=== PATIENT | male | born 1950 | race Asian ===

== ENCOUNTER 2017-01-21 15:37 | Inpatient (IN) | payer MEDICARE, MEDICAID ==
[~2017-01-21] VITALS: Ht 157.5 cm; Wt 62.1 kg
--- NOTE | 2017-01-21 15:38 | Emergency Room Report ---
History of Present Illness General Chief Complaint: General Complaint Source: EMS Present Illness HPI Patient is a 66-year-old male brought in by ambulance after increased that he had swelling. Patient had the been having several weeks of a rash to his extremities. The nursing staff noticed some increased left knee redness. He had not been recently on antibiotics. Patient is not currently febrile. He presented for evaluation of possible knee cellulitis. Allergies: Coded Allergies: No Known Allergies (Unverified , 01/21/17) Patient History Past Medical History: see triage record Reviewed Nursing Documentation: PMH: Agreed, PSxH: Agreed Review of Systems All Other Systems: negative except mentioned in HPI Physical Exam Sp02 EP Interpretation: reviewed, normal General Appearance: normal inspection, well appearing, no apparent distress, alert, Chronically Ill Head: atraumatic ENT: normal ENT inspection, hearing grossly normal, normal voice Neck: normal inspection, full range of motion, supple, no bony tend Respiratory: normal inspection, lungs clear, normal breath sounds, no respiratory distress, no retraction, no wheezing Cardiovascular #1: regular rate, rhythm Gastrointestinal: normal inspection, normal bowel sounds, non tender, soft, no guarding, no hernia Genitourinary: no CVA tenderness Musculoskeletal: normal inspection, back normal, normal range of motion, swelling - left knee erythema warmth, bilateral lower extremity lesions about 1cm in diameter Neurologic: normal inspection, alert, responsive, speech normal Psychiatric: normal inspection, judgement/insight normal, mood/affect normal Skin: normal inspection, normal color, no rash Medical Decision Making Diagnostic Impression: Primary Impression: Cellulitis Additional Impressions: Skin ulcer Severe sepsis ER Course Patient presented for skin rash. Differential diagnosis included wasn't limited to cellulitis, septic joint, arthritis, vascular insufficiency, vasculitis among others.Because of complexity of patient's case laboratory testing and imaging studies were ordered.The patient started on IV antibiotics. Blood cultures were obtained. Patient was noted to have elevated WBC and elevated lactic acid level consistent with severe sepsis. Dr. Tom Nolan was contacted for inpatient management. Labs Test 01/21/17 16:26 01/21/17 16:33 White Blood Count 16.8 K/UL (4.8-10.8) Red Blood Count 3.19 M/UL (4.70-6.10) Hemoglobin 11.1 G/DL (14.2-18.0) Hematocrit 31.8 % (42.0-52.0) Mean Corpuscular Volume 100 FL (80-99) Mean Corpuscular Hemoglobin 34.8 PG (27.0-31.0) Mean Corpuscular Hemoglobin Concent 35.0 G/DL (32.0-36.0) Red Cell Distribution Width 13.1 % (11.6-14.8) Platelet Count 281 K/UL (150-450) Mean Platelet Volume 5.6 FL (6.5-10.1) Neutrophils (%) (Auto) % (45.0-75.0) Lymphocytes (%) (Auto) % (20.0-45.0) Monocytes (%) (Auto) % (1.0-10.0) Eosinophils (%) (Auto) % (0.0-3.0) Basophils (%) (Auto) % (0.0-2.0) Prothrombin Time 10.7 SEC (9.30-11.50) Prothromb Time International Ratio 1.1 (0.9-1.1) Activated Partial Thromboplast Time 30 SEC (23-33) Sodium Level 131 mEQ/L (135-145) Potassium Level 3.4 mEQ/L (3.4-4.9) Chloride Level 91 mEQ/L (98-107) Carbon Dioxide Level 21 mEQ/L (20-30) Anion Gap 19 (5-15) Blood Urea Nitrogen 35 mg/dL (7-23) Creatinine 0.8 mg/dL (0.7-1.2) Estimat Glomerular Filtration Rate > 60 mL/min (>60) Glucose Level 278 mg/dL (74-106) Lactic Acid Level 2.30 mmol/L (0.66-2.22) Calcium Level 8.6 mg/dL (8.6-10.2) Total Bilirubin < 0.2 mg/dL (0.0-1.2) Aspartate Amino Transf (AST/SGOT) 49 U/L (5-40) Alanine Aminotransferase (ALT/SGPT) 39 U/L (3-41) Alkaline Phosphatase 79 U/L (40-129) Total Creatine Kinase 790 U/L (38-174) Creatine Kinase MB 12.9 ng/mL (< 6.7) Creatine Kinase MB Relative Index 1.6 Troponin I < 0.30 ng/mL (<=0.30) Total Protein 6.1 g/dL (6.6-8.7) Albumin 2.5 g/dL (3.5-5.2) Globulin 3.6 g/dL Albumin/Globulin Ratio 0.6 (1.0-2.7) Urine Color Yellow Urine Appearance Clear Urine pH 5 (4.5-8.0) Urine Specific [place] 1.010 (1.005-1.035) Urine Protein 2+ (NEGATIVE) Urine Glucose (UA) 3+ (NEGATIVE) Urine Ketones Negative (NEGATIVE) Urine Occult Blood 5+ (NEGATIVE) Urine Nitrite Negative (NEGATIVE) Urine Bilirubin Negative (NEGATIVE) Urine Urobilinogen 1 MG/DL (0.0-1.0) Urine Leukocyte Esterase 1+ (NEGATIVE) Urine RBC 10-15 /HPF (0 - 0) Urine WBC 5-10 /HPF (0 - 0) Urine Squamous Epithelial Cells None /LPF (NONE/OCC) Urine Amorphous Sediment Few /LPF (NONE) Urine Bacteria Moderate /HPF (NONE) EKG Diagnostic Results Rate: tachycardiac Rhythm: NSR ST Segments: no acute changes ASA given to the pt in ED: No Rhythm Strip Diag. Results EP Interpretation: yes Rhythm: no PVC's, no ectopy, other - sinus tachycardia rate 133 Chest X-Ray Diagnostic Results EP Interpretation: Yes Findings: no consolidation, no effusion, no pneumothorax, no acute cardiopulmonary disease Number of Views: 1 Status: unchanged Disposition: ADMITTED INPATIENT Condition: Serious Kush Hammonds Jan 21, 2017 15:38
[2017-01-21 15:41] VITALS: BP 130/80
[2017-01-21] MEDS ORDERED: metroNIDAZOLE 500mg 100 ML IV SCH (15:45)
[2017-01-21] MEDS ORDERED: Cefepime HCl 1 GM in NS 55 ML IV SCH (15:45)
[2017-01-21] MEDS ORDERED: Cefepime 1gm vial ONE (16:17)
[2017-01-21] MEDS ORDERED: ASPIR 8181 MG ORAL (16:47)
[2017-01-21] MEDS ORDERED: ACTOS30 MG ORAL (16:47)
[2017-01-21] MEDS ORDERED: AMBIEN5 MG ORAL (16:47)
[2017-01-21] MEDS ORDERED: FENTANYL1 EAC1 TOPIC (16:49)
[2017-01-21] MEDS ORDERED: CRANBERRY450 M3 PO (16:49)
[2017-01-21] MEDS ORDERED: BENADRYL25 MG ORAL (16:49)
[2017-01-21] MEDS ORDERED: CALCIUM 250+D1 EACH PO (16:49)
[2017-01-21] MEDS ORDERED: FOSAMAX70 MG ORAL (16:49)
[2017-01-21] MEDS ORDERED: COLACE100 MG ORAL (16:49)
[2017-01-21 16:51] LABS: APPEARANCE,URINE CLEAR; KETONES,URINE NEGATIVE (NEGATIVE); LEUKOCYTE ESTERASE ,URINE 1+ (NEGATIVE); NITRITE,URINE NEGATIVE (NEGATIVE); PH,URINE 5 (4.5-8.0); PROTEIN,URINE 2+ (NEGATIVE); UROBILINOGEN,URINE 1 MG/DL (0.0-1.0)
[2017-01-21] MEDS ORDERED: GLUCOPHAGE850 MG ORAL (16:51)
[2017-01-21] MEDS ORDERED: GLUCOTROL10 MG ORAL (16:51)
[2017-01-21] MEDS ORDERED: IBUPROFEN600 MG ORAL (16:53)
[2017-01-21] MEDS ORDERED: NEURONTIN100 MG ORAL (16:53)
[2017-01-21] MEDS ORDERED: LOPID600 MG ORAL (16:53)
[2017-01-21] MEDS ORDERED: NORCO 5-325 TA1 EAC1 ORAL (16:53)
[2017-01-21] MEDS ORDERED: LOTENSIN20 MG ORAL (16:53)
[2017-01-21] MEDS ORDERED: ATENOLOL50 MG ORAL (16:54)
[2017-01-21] MEDS ORDERED: NORVASC10 MG ORAL (16:54)
[2017-01-21] MEDS ORDERED: VITAMIN C250 MG ORAL (16:54)
[2017-01-21 17:00] LABS: MEAN CORPUSCULAR HEMOGLOBIN 34.8 PG (27.0-31.0); MEAN CORPUSCULAR VOLUME 100 FL (80-99); MEAN PLATELET VOLUME 5.6 FL (6.5-10.1); PLATELET COUNT 281 K/UL (150-450); RED BLOOD COUNT 3.19 M/UL (4.70-6.10); RED CELL DISTRIBUTION WIDTH 13.1 % (11.6-14.8); WHITE BLOOD COUNT 16.8 K/UL (4.8-10.8)
[2017-01-21 17:09] LABS: TROPONIN I < 0.30 ng/mL (<=0.30)
[2017-01-21 17:11] LABS: ALANINE AMINOTRANSFERASE 39 U/L (3-41); ALBUMIN/GLOBULIN RATIO 0.6 (1.0-2.7); ANION GAP 19 (5-15); ASPARTATE AMINO TRANSFERASE 49 U/L (5-40); CALCIUM 8.6 mg/dL (8.6-10.2); CARBON DIOXIDE 21 mEQ/L (20-30); CHLORIDE 91 mEQ/L (98-107); CREATININE 0.8 mg/dL (0.7-1.2); GLOMERULAR FILTRATION RATE > 60 mL/min (>60); HEMOLYSIS 3; POTASSIUM 3.4 mEQ/L (3.4-4.9); SODIUM 131 mEQ/L (135-145); TOTAL PROTEIN 6.1 g/dL (6.6-8.7)
[2017-01-21 17:12] VITALS: BP 114/82
[2017-01-21 17:19] LABS: REFLEX LACTIC ACID YES OR NO YES
[2017-01-21 17:20] LABS: AMORPHOUS SEDIMENT,UR FEW /LPF; BACTERIA,URINE MODERATE /HPF
[2017-01-21 17:21] LABS: INR 1.1 (0.9-1.1); PROTHROMBIN TIME 10.7 SEC (9.30-11.50)
[2017-01-21 17:22] LABS: CKMB 12.9 ng/mL (< 6.7)
[2017-01-21] MEDS ORDERED: Mylanta II UD 30ml ORAL PRN (18:45)
[2017-01-21] MEDS ORDERED: Miralax 17gm pkt ORAL PRN (18:45)
[2017-01-21] MEDS ORDERED: Zolpidem 5mg tab ORAL PRN (18:45)
[2017-01-21] MEDS ORDERED: LORazepam Inj 2mg/ml 1ml IV PRN (18:45)
[2017-01-21 19:03] VITALS: BP 136/44
[2017-01-21 19:11] LABS: BAND NEUTROPHILS % (MANUAL) 28 % (0-8); BASOPHILS % (MANUAL) 1 % (0-2); LYMPHOCYTES % (MANUAL) 5 % (20-45); NEUTROPHILS % (MANUAL) 53 % (45-75); TOTAL CELLS COUNTED 100
[2017-01-21 19:13] LABS: ANISOCYTOSIS 1+
[2017-01-21 19:14] LABS: EOSINOPHILS % (MANUAL) 0 % (0-3); HYPOCHROMASIA 1+; MACROCYTES 1+; PLATELET ESTIMATE ADEQUATE; PLATELET MORPHOLOGY NORMAL
[2017-01-21 21:01] VITALS: BP 119/60
[2017-01-21 21:30] VITALS: BP 143/73
[2017-01-21] MEDS: Vancomycin 1gm in D5W 275ml IVPB SCH (22:43)
[2017-01-21] MEDS: Heparin 5000 units/ml inj SUBQ SCH (22:50)
[2017-01-21] MEDS: Morphine Sulfate 2mg/ml Inj IVP PRN (22:53)
[2017-01-21] MEDS: NovoLOG Insulin Flexpen SUBQ SCH (23:43)
[2017-01-22] VITALS (7 sets, daily range): BP systolic 63–147; BP diastolic 40–73
[2017-01-22] MEDS: Cefepime HCl 1 GM in D5W 55 ML IV SCH ×3 (00:50→17:29)
[2017-01-22] MEDS: Morphine Sulfate 2mg/ml Inj IVP PRN ×3 (06:00→17:29)
[2017-01-22] MEDS ORDERED: Glipizide PO (06:01)
[2017-01-22] MEDS ORDERED: DIPHENHYDRAMINE25 M1 ORAL (06:01)
[2017-01-22] MEDS: NovoLOG Insulin Flexpen SUBQ SCH ×4 (06:56→21:10)
[2017-01-22 08:08] LABS: BASOPHILS % (AUTO) 0.6 % (0.0-2.0); LYMPHOCYTES % (AUTO) 7.7 % (20.0-45.0); MEAN CORPUSCULAR HGB CONC 33.1 G/DL (32.0-36.0); MEAN CORPUSCULAR VOLUME 100 FL (80-99); MONOCYTES % (AUTO) 8.4 % (1.0-10.0); NEUTROPHILS % (AUTO) 82.3 % (45.0-75.0); PLATELET COUNT 324 K/UL (150-450); RED BLOOD COUNT 3.34 M/UL (4.70-6.10); RED CELL DISTRIBUTION WIDTH 13.5 % (11.6-14.8); WHITE BLOOD COUNT 14.9 K/UL (4.8-10.8)
[2017-01-22 08:22] LABS: ALANINE AMINOTRANSFERASE 41 U/L (3-41); ALBUMIN/GLOBULIN RATIO 0.6 (1.0-2.7); ANION GAP 20 (5-15); ASPARTATE AMINO TRANSFERASE 38 U/L (5-40); CALCIUM 8.5 mg/dL (8.6-10.2); CARBON DIOXIDE 21 mEQ/L (20-30); CHLORIDE 94 mEQ/L (98-107); CHOLESTEROL 116 mg/dL (< 200); CHOLESTEROL/HDL RATIO 23.2 (3.3-4.4); CREATININE 0.6 mg/dL (0.7-1.2); GLOMERULAR FILTRATION RATE > 60 mL/min (>60); HEMOLYSIS 6; LDL CHOLESTEROL (CALC.) 70 mg/dL (60-99); POTASSIUM 2.8 mEQ/L (3.4-4.9); SODIUM 135 mEQ/L (135-145); TOTAL PROTEIN 6.3 g/dL (6.6-8.7)
[2017-01-22 08:33] LABS: THYROID STIMULATING HORMONE 0.219 uIU/mL (0.300-4.500)
[2017-01-22] MEDS: Heparin 5000 units/ml inj SUBQ SCH ×2 (08:33→21:11)
[2017-01-22] MEDS: Vancomycin 1gm in D5W 275ml IVPB SCH ×2 (08:34→21:08)
[2017-01-22] MEDS ORDERED: Aspirin EC 81mg tab ORAL SCH (09:00)
[2017-01-22 09:16] LABS: HEMOGLOBIN A1C 6.1 % (< 6.0)
[2017-01-22] MEDS ORDERED: NS 275ml ONE (09:46)
[2017-01-22] MEDS ORDERED: Tubing IV Secondary IV ONE (09:46)
--- NOTE | 2017-01-22 12:46 | Consultation ---
History of Present Illness General Date patient seen: Jan 22, 2017 Chief Complaint: General Complaint Referring physician: Dr. Nolan Reason for Consultation: COPD, inpatient management Present Illness HPI 66-year-old male with hx of DM, HTN, COPD, chronic skin disease brought in by ambulance with CC of increased left knee redness. He has generalized rash with some crust and scar formation on some areas. Allergies: Coded Allergies: No Known Allergies (Unverified , 01/21/17) Medication History Scheduled Alendronate Sodium* (Fosamax*), 70 MG ORAL ONCE A WEEK, (Reported) Amlodipine Besylate (Norvasc), 10 MG ORAL DAILY, (Reported) Ascorbic Acid* (Vitamin C*), 250 MG ORAL TWICE A DAY, (Reported) Aspirin* (Aspir 81*), 81 MG ORAL DAILY, (Reported) Atenolol* (Tenormin*), 50 MG ORAL DAILY, (Reported) Benazepril Hcl* (Lotensin*), 20 MG ORAL BID, (Reported) Calcium Carbonate/Vitamin D3 (Calcium 250+D Tablet), 1 EACH PO TID, (Reported) Cranberry Fruit Concentrate (Cranberry), 450 MG PO DAILY, (Reported) Docusate Sodium* (Colace*), 100 MG ORAL TWICE A DAY, (Reported) Fentanyl 50MCG Patch (Fentanyl 50MCG Patch*), 1 PATCH TOPIC EVERY 72 HOURS, ( Reported) Gabapentin* (Neurontin*), 300 MG ORAL BEDTIME, (Reported) Gemfibrozil* (Lopid*), 600 MG ORAL AC, (Reported) Metformin Hcl* (Glucophage*), 850 MG ORAL TID, (Reported) Pioglitazone Hcl* (Actos*), 30 MG ORAL DAILY, (Reported) [Glipizide*], 10 MG PO THREE TIMES A DAY, (Reported) Scheduled PRN Diphenhydramine Hcl* (Diphenhydramine Hcl*), 25 MG ORAL THREE TIMES A DAY PRN for Itching, (Reported) Hydrocodone Bit/Acetaminophen 5-325* ([place] 5-325 Tablet*), 2 TAB ORAL Q6HR PRN for For Pain, (Reported) Ibuprofen* (Motrin*), 400 MG ORAL Q6H PRN for For Pain, (Reported) Zolpidem Tartrate* (Ambien*), 5 MG ORAL BEDTIME PRN for Insomnia, (Reported) Discontinued Medications Glipizide* (Glucotrol*), 10 MG ORAL AC, (Reported) Discontinued Reason: Prescription changed Patient History Healthcare decision maker Resuscitation status Full Code Advanced Directive on File No Past Medical/Surgical History Past Medical/Surgical History: (1) COPD (chronic obstructive pulmonary disease) (2) Diabetes mellitus Review of Systems Skin: Reports: other - itching, rash Physical Exam General Appearance: cachetic Lines, tubes and drains: peripheral HEENT: normocephalic, atraumatic Neck: non-tender, supple Breasts: no masses, no discharge Cardiovascular/Chest: normal peripheral pulses Abdomen: normal bowel sounds, non tender Extremities: other - right knee swelling Skin Exam: rash 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 normal Last 24 Hour Vital Signs Date Time Temp Pulse Resp B/P Pulse Ox O2 Delivery O2 Flow Rate FiO2 01/22/17 11:20 98.1 94 20 113/72 99 Room Air 01/22/17 10:30 97.9 01/22/17 08:34 116 147/73 01/22/17 08:33 116 147/73 01/22/17 08:00 116 01/22/17 07:56 97.9 116 20 147/73 98 Room Air 01/22/17 04:20 98.2 126 20 113/68 96 Room Air 01/22/17 04:00 127 01/22/17 00:00 97.7 64 20 121/65 97 Room Air 01/22/17 00:00 132 01/21/17 21:30 98.2 129 20 143/73 99 Room Air 01/21/17 21:30 130 01/21/17 21:01 98.5 126 19 119/60 100 Room Air 01/21/17 21:01 98.5 126 19 119/60 100 Room Air 01/21/17 19:03 98.1 128 15 136/44 98 Room Air 01/21/17 17:12 98.1 125 15 114/82 98 Room Air 01/21/17 15:41 98.1 138 16 130/80 98 Room Air 01/21/17 15:30 98.1 16 130/80 98 Intake and Output 01/21/17 01/22/17 19:00 07:00 Intake Total 100 ml 330.000 ml Balance 100 ml 330.000 ml Intake IV Total 100 ml 330.000 ml # Voids 1 Laboratory Tests Test 01/21/17 16:26 01/21/17 16:33 01/21/17 17:26 01/22/17 06:55 White Blood Count 16.8 K/UL (4.8-10.8) H 14.9 K/UL (4.8-10.8) H Red Blood Count 3.19 M/UL (4.70-6.10) L 3.34 M/UL (4.70-6.10) L Hemoglobin 11.1 G/DL (14.2-18.0) L 11.0 G/DL (14.2-18.0) L Hematocrit 31.8 % (42.0-52.0) L 33.3 % (42.0-52.0) L Mean Corpuscular Volume 100 FL (80-99) H 100 FL (80-99) H Mean Corpuscular Hemoglobin 34.8 PG (27.0-31.0) H 33.0 PG (27.0-31.0) H Mean Corpuscular Hemoglobin Concent 35.0 G/DL (32.0-36.0) 33.1 G/DL (32.0-36.0) Red Cell Distribution Width 13.1 % (11.6-14.8) 13.5 % (11.6-14.8) Platelet Count 281 K/UL (150-450) 324 K/UL (150-450) Mean Platelet Volume 5.6 FL (6.5-10.1) L 6.0 FL (6.5-10.1) L Neutrophils (%) (Auto) % (45.0-75.0) 82.3 % (45.0-75.0) H Lymphocytes (%) (Auto) % (20.0-45.0) 7.7 % (20.0-45.0) L Monocytes (%) (Auto) % (1.0-10.0) 8.4 % (1.0-10.0) Eosinophils (%) (Auto) % (0.0-3.0) 1.0 % (0.0-3.0) Basophils (%) (Auto) % (0.0-2.0) 0.6 % (0.0-2.0) Differential Total Cells Counted 100 Neutrophils % (Manual) 53 % (45-75) Lymphocytes % (Manual) 5 % (20-45) L Monocytes % (Manual) 13 % (1-10) H Eosinophils % (Manual) 0 % (0-3) Basophils % (Manual) 1 % (0-2) Band Neutrophils 28 % (0-8) H Platelet Estimate Adequate Platelet Morphology Normal Hypochromasia 1+ Anisocytosis 1+ Macrocytosis 1+ Prothrombin Time 10.7 SEC (9.30-11.50) Prothromb Time International Ratio 1.1 (0.9-1.1) Activated Partial Thromboplast Time 30 SEC (23-33) Sodium Level 131 mEQ/L (135-145) L 135 mEQ/L (135-145) Potassium Level 3.4 mEQ/L (3.4-4.9) 2.8 mEQ/L (3.4-4.9) L Chloride Level 91 mEQ/L (98-107) L 94 mEQ/L (98-107) L Carbon Dioxide Level 21 mEQ/L (20-30) 21 mEQ/L (20-30) Anion Gap 19 (5-15) H 20 (5-15) H Blood Urea Nitrogen 35 mg/dL (7-23) H 22 mg/dL (7-23) Creatinine 0.8 mg/dL (0.7-1.2) 0.6 mg/dL (0.7-1.2) L Estimat Glomerular Filtration Rate > 60 mL/min (>60) > 60 mL/min (>60) Glucose Level 278 mg/dL (74-106) H 113 mg/dL (74-106) #H Lactic Acid Level 2.30 mmol/L (0.66-2.22) H 2.40 mmol/L (0.66-2.22) H Calcium Level 8.6 mg/dL (8.6-10.2) 8.5 mg/dL (8.6-10.2) L Total Bilirubin < 0.2 mg/dL (0.0-1.2) 0.3 mg/dL (0.0-1.2) Aspartate Amino Transf (AST/SGOT) 49 U/L (5-40) H 38 U/L (5-40) Alanine Aminotransferase (ALT/SGPT) 39 U/L (3-41) 41 U/L (3-41) Alkaline Phosphatase 79 U/L (40-129) 100 U/L (40-129) Total Creatine Kinase 790 U/L (38-174) H Creatine Kinase MB 12.9 ng/mL (< 6.7) H Creatine Kinase MB Relative Index 1.6 Troponin I < 0.30 ng/mL (<=0.30) Total Protein 6.1 g/dL (6.6-8.7) L 6.3 g/dL (6.6-8.7) L Albumin 2.5 g/dL (3.5-5.2) L 2.4 g/dL (3.5-5.2) L Globulin 3.6 g/dL 3.9 g/dL Albumin/Globulin Ratio 0.6 (1.0-2.7) L 0.6 (1.0-2.7) L Urine Color Yellow Urine Appearance Clear Urine pH 5 (4.5-8.0) Urine Specific [place] 1.010 (1.005-1.035) Urine Protein 2+ (NEGATIVE) H Urine Glucose (UA) 3+ (NEGATIVE) H Urine Ketones Negative (NEGATIVE) Urine Occult Blood 5+ (NEGATIVE) H Urine Nitrite Negative (NEGATIVE) Urine Bilirubin Negative (NEGATIVE) Urine Urobilinogen 1 MG/DL (0.0-1.0) H Urine Leukocyte Esterase 1+ (NEGATIVE) H Urine RBC 10-15 /HPF (0 - 0) H Urine WBC 5-10 /HPF (0 - 0) H Urine Squamous Epithelial Cells None /LPF (NONE/OCC) Urine Amorphous Sediment Few /LPF (NONE) H Urine Bacteria Moderate /HPF (NONE) H Hemoglobin A1c 6.1 % (< 6.0) H Triglycerides Level 207 mg/dL (< 150) H Cholesterol Level 116 mg/dL (< 200) LDL Cholesterol 70 mg/dL (60-99) HDL Cholesterol 5 mg/dL (> 60) Cholesterol/HDL Ratio 23.2 (3.3-4.4) H Thyroid Stimulating Hormone (TSH) 0.219 uIU/mL (0.300-4.500) Microbiology Date/Time Source Procedure Growth Status 01/21/17 16:33 Urine,Clean Catch Urine Culture - Preliminary Resulted Height (Feet): 5 Height (Inches): 2.00 Weight (Pounds): 137 Medications Current Medications Medications (Trade) Dose Ordered Sig/Halina Route PRN Reason Start Time Stop Time Status Last Admin Dose Admin Acetaminophen (Tylenol) 650 mg Q4H PRN ORAL fever 01/21/17 18:45 02/20/17 18:44 Al Hydroxide/Mg Hydroxide (Mylanta II) 30 ml Q6H PRN ORAL dyspepsia 01/21/17 18:45 02/20/17 18:44 Alendronate Sodium (Fosamax) 70 mg ONCE A WEEK ORAL 01/22/17 06:00 02/21/17 05:59 01/22/17 08:32 Amlodipine Besylate (Norvasc) 10 mg DAILY ORAL 01/22/17 09:00 02/21/17 08:59 01/22/17 08:33 Aspirin (Ecotrin) 81 mg DAILY ORAL 01/22/17 09:00 02/21/17 08:59 01/22/17 08:33 Atenolol (Tenormin) 50 mg DAILY ORAL 01/22/17 09:00 02/21/17 08:59 01/22/17 08:34 Cefepime HCl/ Dextrose (Maxipime/D5W) 55 ml @ 110 mls/hr Q8HR@0000,0800,1600 IV 01/22/17 00:00 01/29/17 00:00 01/22/17 08:32 Dextrose (Dextrose 50%) STAT PRN IV Hypoglycemia 01/21/17 18:45 02/20/17 18:44 Fentanyl (Duragesic) 1 patch EVERY 72 HOURS TDERMAL 01/24/17 09:00 01/31/17 08:59 Gabapentin (Neurontin) 300 mg BEDTIME ORAL 01/21/17 21:00 02/20/17 20:59 01/21/17 22:45 Gemfibrozil (Lopid) 600 mg DAILY ORAL 01/22/17 09:00 02/21/17 08:59 01/22/17 08:37 Heparin Sodium (Porcine) (Heparin 5000 units/ml) 5,000 units EVERY 12 HOURS SUBQ 01/21/17 21:00 02/20/17 20:59 01/22/17 08:33 Ibuprofen (Advil) 400 mg Q6H PRN ORAL MILD TO MODERATE PAIN 01/21/17 18:45 02/20/17 18:44 Insulin Aspart BEFORE MEALS AND HS SUBQ 01/21/17 21:00 02/20/17 20:59 01/22/17 11:06 Lorazepam (Ativan 2mg/ml 1ml) 0.5 mg Q4H PRN IV For Anxiety 01/21/17 18:45 01/28/17 18:44 Morphine Sulfate (Morphine Sulfate) 1 mg Q4H PRN IVP SEVERE PAIN 01/21/17 18:45 01/28/17 18:44 01/22/17 09:58 Ondansetron HCl (Zofran) 4 mg Q6H PRN IVP Nausea & Vomiting 01/21/17 18:45 02/20/17 18:44 Polyethylene Glycol (Miralax) 17 gm HSPRN PRN ORAL Constipation 01/21/17 18:45 02/20/17 18:44 Potassium Chloride (K-Dur) 40 meq Q8HR ORAL 01/22/17 11:00 01/23/17 06:01 01/22/17 11:37 Vancomycin HCl 1 ea 1 ea DAILY PRN MISC Per rx protocol 01/21/17 18:45 02/20/17 18:44 Vancomycin HCl/ Dextrose (Vancomycin/D5W) 275 ml @ 183.708 mls/hr Q12HR IVPB 01/21/17 21:00 01/26/17 20:59 01/22/17 08:34 Zolpidem Tartrate (Ambien) 5 mg HSPRN PRN ORAL Insomnia 01/21/17 18:45 02/20/17 18:44 01/22/17 00:06 Assessment/Plan Problem List: (1) Severe sepsis ICD Codes: A41.9 - Sepsis, unspecified organism; R65.20 - Severe sepsis without septic shock SNOMED: 24414103 (2) Cellulitis ICD Codes: L03.90 - Cellulitis, unspecified SNOMED: 549625560 (3) Skin ulcer ICD Codes: L98.499 - Non-pressure chronic ulcer of skin of other sites with unspecified severity SNOMED: 68706291 (4) COPD (chronic obstructive pulmonary disease) ICD Codes: J44.9 - Chronic obstructive pulmonary disease, unspecified SNOMED: 35741420 (5) Diabetes mellitus ICD Codes: E11.9 - Type 2 diabetes mellitus without complications SNOMED: 01094982 Assessment/Plan rheumatology evaluation IV antibiotics check cultures v/u wbc wound care sliding scale insulin coverage DESIRAE MERIDA Jan 22, 2017 12:46
--- NOTE | 2017-01-22 13:34 | Diagnostic Imaging Report ---
Indication: Shortness of breath Technique: Single portable AP view of the chest. Findings: Comparison: 11/03/2005 Chronic deformities of the glenoid processes of both scapulae unchanged. Left humeral head currently subluxed cephalad, apparently obliterating the subacromial space. Right subacromial spur base excluded from image. The extra pulmonary soft tissues, cardiomediastinal silhouette, pulmonary vasculature and parenchyma, and pleural surfaces remain unremarkable. 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
--- NOTE | 2017-01-22 15:10 | Infectious Diseases Prog Note ---
Assessment/Plan Problems: (1) Scabies Assessment & Plan: will give him Elimite course for now and monitor his response , keep in contact isolation (2) Multiple wounds of skin Assessment & Plan: rule out pemphigus , recommend skin biopsy and pathology , and dermatology eval (3) Wound of left leg Assessment & Plan: with infection, rule out underlying osteomyelitis, will continue cefepime and vancomycin , check X ray of the left leg. recommend surgical eval (4) Severe sepsis Assessment & Plan: due to the above, will add metronidazole, and fluconazole empirically until further culture is obtained . (5) Cellulitis Assessment & Plan: continue wide spectrum antibiotics (6) Diabetes mellitus Assessment & Plan: recommend tight glycemic control to keep blood glucose between 80-120. Subjective Allergies: Coded Allergies: No Known Allergies (Unverified , 01/21/17) Objective Vital Signs Last 24 Hour Vital Signs Date Time Temp Pulse Resp B/P Pulse Ox O2 Delivery O2 Flow Rate FiO2 01/22/17 12:00 83 01/22/17 11:20 98.1 94 20 113/72 99 Room Air 01/22/17 10:30 97.9 01/22/17 08:34 116 147/73 01/22/17 08:33 116 147/73 01/22/17 08:00 116 01/22/17 07:56 97.9 116 20 147/73 98 Room Air 01/22/17 04:20 98.2 126 20 113/68 96 Room Air 01/22/17 04:00 127 01/22/17 00:00 97.7 64 20 121/65 97 Room Air 01/22/17 00:00 132 01/21/17 21:30 98.2 129 20 143/73 99 Room Air 01/21/17 21:30 130 01/21/17 21:01 98.5 126 19 119/60 100 Room Air 01/21/17 21:01 98.5 126 19 119/60 100 Room Air 01/21/17 19:03 98.1 128 15 136/44 98 Room Air 01/21/17 17:12 98.1 125 15 114/82 98 Room Air 01/21/17 15:41 98.1 138 16 130/80 98 Room Air 01/21/17 15:30 98.1 16 130/80 98 Height (Feet): 5 Height (Inches): 2.00 Weight (Pounds): 137 Microbiology Date/Time Source Procedure Growth Status 01/21/17 16:33 Urine,Clean Catch Urine Culture - Preliminary Resulted Laboratory Tests Test 01/21/17 16:26 01/21/17 16:33 01/21/17 17:26 01/22/17 06:55 White Blood Count 16.8 K/UL (4.8-10.8) H 14.9 K/UL (4.8-10.8) H Red Blood Count 3.19 M/UL (4.70-6.10) L 3.34 M/UL (4.70-6.10) L Hemoglobin 11.1 G/DL (14.2-18.0) L 11.0 G/DL (14.2-18.0) L Hematocrit 31.8 % (42.0-52.0) L 33.3 % (42.0-52.0) L Mean Corpuscular Volume 100 FL (80-99) H 100 FL (80-99) H Mean Corpuscular Hemoglobin 34.8 PG (27.0-31.0) H 33.0 PG (27.0-31.0) H Mean Corpuscular Hemoglobin Concent 35.0 G/DL (32.0-36.0) 33.1 G/DL (32.0-36.0) Red Cell Distribution Width 13.1 % (11.6-14.8) 13.5 % (11.6-14.8) Platelet Count 281 K/UL (150-450) 324 K/UL (150-450) Mean Platelet Volume 5.6 FL (6.5-10.1) L 6.0 FL (6.5-10.1) L Neutrophils (%) (Auto) % (45.0-75.0) 82.3 % (45.0-75.0) H Lymphocytes (%) (Auto) % (20.0-45.0) 7.7 % (20.0-45.0) L Monocytes (%) (Auto) % (1.0-10.0) 8.4 % (1.0-10.0) Eosinophils (%) (Auto) % (0.0-3.0) 1.0 % (0.0-3.0) Basophils (%) (Auto) % (0.0-2.0) 0.6 % (0.0-2.0) Differential Total Cells Counted 100 Neutrophils % (Manual) 53 % (45-75) Lymphocytes % (Manual) 5 % (20-45) L Monocytes % (Manual) 13 % (1-10) H Eosinophils % (Manual) 0 % (0-3) Basophils % (Manual) 1 % (0-2) Band Neutrophils 28 % (0-8) H Platelet Estimate Adequate Platelet Morphology Normal Hypochromasia 1+ Anisocytosis 1+ Macrocytosis 1+ Prothrombin Time 10.7 SEC (9.30-11.50) Prothromb Time International Ratio 1.1 (0.9-1.1) Activated Partial Thromboplast Time 30 SEC (23-33) Sodium Level 131 mEQ/L (135-145) L 135 mEQ/L (135-145) Potassium Level 3.4 mEQ/L (3.4-4.9) 2.8 mEQ/L (3.4-4.9) L Chloride Level 91 mEQ/L (98-107) L 94 mEQ/L (98-107) L Carbon Dioxide Level 21 mEQ/L (20-30) 21 mEQ/L (20-30) Anion Gap 19 (5-15) H 20 (5-15) H Blood Urea Nitrogen 35 mg/dL (7-23) H 22 mg/dL (7-23) Creatinine 0.8 mg/dL (0.7-1.2) 0.6 mg/dL (0.7-1.2) L Estimat Glomerular Filtration Rate > 60 mL/min (>60) > 60 mL/min (>60) Glucose Level 278 mg/dL (74-106) H 113 mg/dL (74-106) #H Lactic Acid Level 2.30 mmol/L (0.66-2.22) H 2.40 mmol/L (0.66-2.22) H Calcium Level 8.6 mg/dL (8.6-10.2) 8.5 mg/dL (8.6-10.2) L Total Bilirubin < 0.2 mg/dL (0.0-1.2) 0.3 mg/dL (0.0-1.2) Aspartate Amino Transf (AST/SGOT) 49 U/L (5-40) H 38 U/L (5-40) Alanine Aminotransferase (ALT/SGPT) 39 U/L (3-41) 41 U/L (3-41) Alkaline Phosphatase 79 U/L (40-129) 100 U/L (40-129) Total Creatine Kinase 790 U/L (38-174) H Creatine Kinase MB 12.9 ng/mL (< 6.7) H Creatine Kinase MB Relative Index 1.6 Troponin I < 0.30 ng/mL (<=0.30) Total Protein 6.1 g/dL (6.6-8.7) L 6.3 g/dL (6.6-8.7) L Albumin 2.5 g/dL (3.5-5.2) L 2.4 g/dL (3.5-5.2) L Globulin 3.6 g/dL 3.9 g/dL Albumin/Globulin Ratio 0.6 (1.0-2.7) L 0.6 (1.0-2.7) L Urine Color Yellow Urine Appearance Clear Urine pH 5 (4.5-8.0) Urine Specific [place] 1.010 (1.005-1.035) Urine Protein 2+ (NEGATIVE) H Urine Glucose (UA) 3+ (NEGATIVE) H Urine Ketones Negative (NEGATIVE) Urine Occult Blood 5+ (NEGATIVE) H Urine Nitrite Negative (NEGATIVE) Urine Bilirubin Negative (NEGATIVE) Urine Urobilinogen 1 MG/DL (0.0-1.0) H Urine Leukocyte Esterase 1+ (NEGATIVE) H Urine RBC 10-15 /HPF (0 - 0) H Urine WBC 5-10 /HPF (0 - 0) H Urine Squamous Epithelial Cells None /LPF (NONE/OCC) Urine Amorphous Sediment Few /LPF (NONE) H Urine Bacteria Moderate /HPF (NONE) H Hemoglobin A1c 6.1 % (< 6.0) H Triglycerides Level 207 mg/dL (< 150) H Cholesterol Level 116 mg/dL (< 200) LDL Cholesterol 70 mg/dL (60-99) HDL Cholesterol 5 mg/dL (> 60) Cholesterol/HDL Ratio 23.2 (3.3-4.4) H Thyroid Stimulating Hormone (TSH) 0.219 uIU/mL (0.300-4.500) Current Medications Medications (Trade) Dose Ordered Sig/Halina Route PRN Reason Start Time Stop Time Status Last Admin Dose Admin Acetaminophen (Tylenol) 650 mg Q4H PRN ORAL fever 01/21/17 18:45 02/20/17 18:44 Al Hydroxide/Mg Hydroxide (Mylanta II) 30 ml Q6H PRN ORAL dyspepsia 01/21/17 18:45 02/20/17 18:44 Alendronate Sodium (Fosamax) 70 mg ONCE A WEEK ORAL 01/22/17 06:00 02/21/17 05:59 01/22/17 08:32 Amlodipine Besylate (Norvasc) 10 mg DAILY ORAL 01/22/17 09:00 02/21/17 08:59 01/22/17 08:33 Aspirin (Ecotrin) 81 mg DAILY ORAL 01/22/17 09:00 02/21/17 08:59 01/22/17 08:33 Atenolol (Tenormin) 50 mg DAILY ORAL 01/22/17 09:00 02/21/17 08:59 01/22/17 08:34 Cefepime HCl/ Dextrose (Maxipime/D5W) 55 ml @ 110 mls/hr Q8HR@0000,0800,1600 IV 01/22/17 00:00 01/29/17 00:00 01/22/17 08:32 Clotrimazole (Lotrimin) 1 applic EVERY 12 HOURS TOPIC 01/22/17 21:00 02/21/17 20:59 UNV Dextrose (Dextrose 50%) STAT PRN IV Hypoglycemia 01/21/17 18:45 02/20/17 18:44 Fentanyl (Duragesic) 1 patch EVERY 72 HOURS TDERMAL 01/24/17 09:00 01/31/17 08:59 Fluconazole/ Sodium Chloride (Diflucan 200mg/ 100ml Premix) 100 ml @ 100 mls/hr Q24H IVPB 01/22/17 15:00 01/29/17 14:59 UNV Gabapentin (Neurontin) 300 mg BEDTIME ORAL 01/22/17 21:00 02/21/17 20:59 Gemfibrozil (Lopid) 600 mg DAILY ORAL 01/22/17 09:00 02/21/17 08:59 01/22/17 08:37 Heparin Sodium (Porcine) (Heparin 5000 units/ml) 5,000 units EVERY 12 HOURS SUBQ 01/21/17 21:00 02/20/17 20:59 01/22/17 08:33 Ibuprofen (Advil) 400 mg Q6H PRN ORAL MILD TO MODERATE PAIN 01/21/17 18:45 02/20/17 18:44 Insulin Aspart BEFORE MEALS AND HS SUBQ 01/21/17 21:00 02/20/17 20:59 01/22/17 11:06 Lorazepam (Ativan 2mg/ml 1ml) 0.5 mg Q4H PRN IV For Anxiety 01/21/17 18:45 01/28/17 18:44 Metronidazole 500 mg 500 mg Q8HR ORAL 01/22/17 15:00 01/29/17 14:59 UNV Morphine Sulfate (Morphine Sulfate) 1 mg Q4H PRN IVP SEVERE PAIN 01/21/17 18:45 01/28/17 18:44 01/22/17 09:58 Mupirocin (Bactroban Oint) 1 applic THREE TIMES A DAY TOPIC 01/23/17 09:00 01/28/17 08:59 UNV Ondansetron HCl (Zofran) 4 mg Q6H PRN IVP Nausea & Vomiting 01/21/17 18:45 02/20/17 18:44 Permethrin (Elimite) 1 applic ONCE ONCE TOPIC 01/22/17 15:00 01/22/17 15:01 UNV Polyethylene Glycol (Miralax) 17 gm HSPRN PRN ORAL Constipation 01/21/17 18:45 02/20/17 18:44 Potassium Chloride (K-Dur) 40 meq Q8HR ORAL 01/22/17 11:00 01/23/17 06:01 01/22/17 11:37 Vancomycin HCl 1 ea 1 ea DAILY PRN MISC Per rx protocol 01/21/17 18:45 02/20/17 18:44 Vancomycin HCl/ Dextrose (Vancomycin/D5W) 275 ml @ 183.708 mls/hr Q12HR IVPB 01/21/17 21:00 01/26/17 20:59 01/22/17 08:34 Zolpidem Tartrate (Ambien) 5 mg HSPRN PRN ORAL Insomnia 01/21/17 18:45 02/20/17 18:44 01/22/17 00:06 Vin Acevedo M.D. Jan 22, 2017 15:10
--- NOTE | 2017-01-22 16:11 | Wound Care Consultation ---
Wound Assessment Wound Assessment #1: Wound Present on Admission: Yes New Wound: No Status Change of Wound: No Wound Location Body Site Modif: left Wound Location Body Site: malleolus/ankle Wound Type: pressure ulcer Zoe Test: Does not Zoe Pressure Ulcer Stage: IV/unstageable Wound Thickness: Full Thickness Wound Length: 4.0 Wound Width: 3.0 Wound Depth: utd Percent of Wound Bed Yellow/Wh: 20 Percent of Wound Purple/Maroon: 80 Wound Drainage Description: Serosanguineous Wound Drainage Amount: Scant Wound Drainage Odor: None/Absent Tissue Surrounding Wound: Erythemic Wound General Appearance: Reddened Wound Assessment #2: Wound Number: #2 Wound Present on Admission: Yes New Wound: No Status Change of Wound: No Wound Location Body Site Modif: left, lower, lateral Wound Location Body Site: leg Wound Type: lesion-etiology unknown Zoe Test: Does not Zoe Wound Thickness: Full Thickness Wound Length: 5.0 Wound Width: 5.5 Wound Depth: utd Percent of Wound [place]/Red: 60 Percent of Wound Bed Yellow/Wh: 40 Wound Drainage Description: Serosanguineous Wound Drainage Amount: Scant Wound Drainage Odor: None/Absent Tissue Surrounding Wound: Erythemic Wound General Appearance: Reddened Wound Assessment #3: Wound Number: #3 Wound Present on Admission: Yes New Wound: No Status Change of Wound: No Wound Location Body Site Modif: left, other - inferior Wound Location Body Site: knee Wound Type: lesion-etiology unknown Zoe Test: Does not Zoe Wound Thickness: Full Thickness Wound Length: 3.0 Wound Width: 3.5 Wound Depth: utd Percent of Wound [place]/Red: 60 Percent of Wound Bed Yellow/Wh: 40 Wound Drainage Description: Serosanguineous Wound Drainage Amount: Scant Wound Drainage Odor: None/Absent Tissue Surrounding Wound: Erythemic Wound General Appearance: Reddened Wound Assessment #4: Wound Number: #4 Wound Present on Admission: Yes New Wound: No Status Change of Wound: No Wound Location Body Site Modif: left, right Wound Location Body Site: hand Wound Type: lesion-etiology unknown Zoe Test: Does not Zoe Wound Thickness: Full Thickness Wound Length: 2.0 Wound Width: 2.5 Wound Depth: utd Percent of Wound [place]/Red: 60 Percent of Wound Bed Yellow/Wh: 40 Wound Drainage Description: Serosanguineous Wound Drainage Amount: Scant Wound Drainage Odor: None/Absent Tissue Surrounding Wound: Erythemic Wound General Appearance: Reddened Wound Assessment #5: Wound Number: #5 Wound Present on Admission: Yes New Wound: No Status Change of Wound: No Wound Location Body Site Modif: mid Wound Location Body Site: sacral Wound Type: pressure ulcer Zoe Test: Does not Zoe Pressure Ulcer Stage: deep tissue injury Wound Thickness: Full Thickness Wound Length: 4.5 Wound Width: 3.5 Wound Depth: utd Percent of Wound Purple/Maroon: 100 Wound Drainage Amount: None Wound Drainage Odor: None/Absent Tissue Surrounding Wound: Erythemic Wound General Appearance: Reddened Wound Assessment #6: Wound Number: #6 Wound Present on Admission: Yes New Wound: No Status Change of Wound: No Wound Location Body Site: perineal area Wound Type: chemical burn Zoe Test: Does not Zoe Percent of Wound [place]/Red: 100 Wound Drainage Amount: None Wound Drainage Odor: None/Absent Tissue Surrounding Wound: Erythemic Wound General Appearance: Reddened Wound Assessment #7: Wound Number: #7 Wound Present on Admission: Yes New Wound: No Status Change of Wound: No Wound Location Body Site Modif: other - generalized Wound Location Body Site: other - generalized Wound Type: rash - with open and dry lesion Zoe Test: Does not Zoe Wound Drainage Description: Serosanguineous Wound Drainage Amount: Scant Wound Drainage Odor: None/Absent Wound General Appearance: Open to air Wound Comment #1 Left malleolus stage IV/unstageable pressure ulcer #2 Left lateral lower leg open wound #3 Left inferior to left knee open wound #4 Left and right hand with multiple open wounds #5 Generalized rash with open and dry wounds #6 Chemical burn on perineal area #7 Sacral DTI pressure ulcer Recommendation -Left malleolus pressure ulcer Cleanse with saline, pat dry, apply Triad cream, cover with bordered gauze daily and PRN soiled/dislodged -Left lateral leg, left inferior of left knee, left and right hands open wound Cleanse with saline, pat dry, apply Adaptic cover with bordered gauze daily and PRN soiled/dislodged -Apply Bactroban oint to generalized Dermitis -Local wound care for DTI per protocol -Keep clean and dry -Low air loss overlay mattress -Turn and reposition -Optimize nutrition -Offload both heels -Heel protector -Assess and f/u accordingly for any changes ROMMEL MATTHEWS RN Jan 22, 2017 16:11
[2017-01-22] MEDS: metroNIDAZOLE 500mg tab ORAL SCH ×2 (16:37→23:00)
--- NOTE | 2017-01-22 19:08 | Consultation ---
DATE OF CONSULTATION: INFECTIOUS DISEASE CONSULTATION CONSULTING PHYSICIAN: Vin Acevedo M.D. REQUESTING PHYSICIAN: Tom Nolan D.O. REASON FOR CONSULTATION: Skin wounds with infection, possible scabies, and cellulitis. Recommendation for antibiotics therapy. HISTORY OF PRESENT ILLNESS: The patient is a 66-year-old male with past medical history of skin wound and ulcers, who was brought in by paramedics for increased swelling and edema. The patient was found to have rash covering all over his body including the lower extremity and there was increased redness of his left leg at the rehabilitation facility where he lives. The patient did not receive any antibiotics recently and he was not having any fever at the facility. He was sent to the emergency room for further evaluation and management. The patient was found to have multiple skin wounds, extensive mainly on his abdomen and lower extremities, some of them in different stage, covered with scabs. He had left leg wound with significant edema draining pus and unclear how long he had the wound. The patient's white count was found to be elevated suggesting sepsis, so he was admitted to the hospital, started on wide-spectrum antibiotics with vancomycin and cefepime, and I was consulted by the primary provider for antibiotics recommendation and further management. As of note, the patient is a poor historian and cannot provide any history. History was mainly obtained from the medical record. PAST MEDICAL HISTORY: Significant for skin rash and wounds, otherwise unable to obtain. MEDICATIONS: He is on cefepime and vancomycin by the admitting physician. For the rest of his medications, please refer to MAR. ALLERGIES: He has no known drug allergy. SOCIAL HISTORY: Unable to obtain. FAMILY HISTORY: Unable to obtain. PHYSICAL EXAMINATION: VITAL SIGNS: Temperature 98.1 degrees, pulse 94, respirations 20, blood pressure 115/72, and pulse oximetry 99% on room air. GENERAL: A middle-aged male, lying in bed, alert, nonverbal, and not in distress. HEENT: Normocephalic and atraumatic. Pupils reactive to light. Dry oral mucosa. Multiple wounds on his skull and neck. NECK: Supple. No lymphadenopathy. CARDIOVASCULAR: He is tachycardic. S1 and S2 positive. No murmur or gallop. LUNGS: He has diminished breathing sounds at the bases. No wheezing or rhonchi. ABDOMEN: Soft, nontender, and nondistended. Positive bowel sounds. No hepatosplenomegaly or ascites. EXTREMITY: Edema and extensive wounds. He has large one on the left lower extremity. It is draining pus with extensive cellulitis. SKIN: He has multiple ulceration with wounds extensive in the lower extremity and abdomen. Some of them draining serosanguineous fluid and some of them covered with scabs. Wounds seem suspicious for pemphigus or dermatological disease superimposed with infection. LABORATORY DATA: White count 14.9, hemoglobin of 11, and platelet count of 324,000. BUN of 22 and creatinine of 0.6. Urinalysis showed leukocyte esterase of 1, WBC of 5 to 10, and moderate amount of bacteria. MICROBIOLOGY: Urine culture is pending. Blood culture is also pending. 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 ASSESSMENT AND PLAN: 1. Wounds of the left leg with infection, rule out underlying osteomyelitis. We will continue cefepime and vancomycin. Add Flagyl. Check x-ray of the left leg to rule out osteo. Recommend surgical evaluation. 2. Multiple skin wounds, rule out pemphigus or dermatological disease. Recommend skin biopsy and pathology and Dermatology evaluation with wound care. Continue wide-spectrum antibiotics. 3. Possible scabies. We will give him Elimite course for now. Continue local wound care and keep in contact isolation. 4. Severe sepsis due to the above. Continue vancomycin and cefepime. We will add Flagyl and fluconazole empiric treatment until further culture is obtained. 5. Cellulitis, extensive of both lower extremity. Continue wide spectrum antibiotics therapy and wound care as needed. 6. Diabetes mellitus. Recommend tight glycemic control to keep blood glucose between 80 to 120. Thank you for the consultation. ID will continue to follow. Vin Acevedo M.D. DR: LIZZETH JOB#: [id number] CC:
[2017-01-22] MEDS ORDERED: Metoprolol 5mg/5ml Inj IVP PRN (22:00)
--- NOTE | 2017-01-22 22:08 | History and Physical Report ---
DATE OF ADMISSION: 01/21/2017 TIME: 2 p.m. CONSULTANTS: 1. Vin Acevedo M.D. 2. Bradley Paul M.D. 3. Jose Owen M.D. 4. Dr. Senior. CHIEF COMPLAINT: Cellulitis lower extremities. BRIEF HISTORY: The patient is a 66-year-old male from [facility] presented with three days increasing lower extremity cellulitis, became punctate, red, swollen. The patient became tired and lethargic, came to the [place] ER, diagnosed with cellulitis of lower extremity, sepsis and UTI, admitted to medical floor for further treatment. Currently calm, resting in bed, complaint of itching and pain to lower extremity. No other complaints. REVIEW OF SYSTEMS: No chest pain. No shortness of breath. No nausea, vomiting, or diarrhea. PAST MEDICAL HISTORY: Lower extremity weakness. PAST SURGICAL HISTORY: Lower extremity surgery. MEDICATIONS: Duragesic, Neurontin, K-Dur, Norvasc, Ecotrin, Tenormin, Lopid, Fosamax, cefepime, heparin, NovoLog, vancomycin, Advil, Tylenol, MiraLax, and Zofran. ALLERGIES: Denies. SOCIAL HISTORY: No smoking. No alcohol. No intravenous drug abuse. FAMILY HISTORY: Noncontributory. PHYSICAL EXAMINATION: GENERAL: Calm, alert and oriented x3, in no acute distress. VITAL SIGNS: Temperature is 98 degrees, pulse 94, respiratory rate 20, and blood pressure 113/72. CARDIOVASCULAR: No murmur. LUNGS: Poor air exchange. ABDOMEN: Bowel sounds are positive. Nontender and nondistended. EXTREMITIES: No clubbing, cyanosis, or edema. Punctate lesion from mid thigh all the way down to toes with surrounding dry scabbing as well. Lower extremity deformity noted. LABORATORY AND DIAGNOSTIC DATA: Laboratory data show white count 14, hemoglobin and hematocrit 11/33 and platelets 324,000. BMP shows potassium 2.8, chloride 94, BUN and creatinine is 22 and 0.3. Glucose 113. Albumin 2.4. INR is 1.1. Urinalysis show 5+ occult blood and +2 leukocyte esterase. ASSESSMENT: 1. Cellulitis of lower extremities. 2. Sepsis. 3. Urinary tract infection. 4. Anemia. 5. Hypertension. 6. Renal insufficiency. 7. Hyponatremia. PLAN: Continue pre-medications. Wound care. Antibiotics per Infectious Disease. OT/PT. Dietary evaluation. CBC and BMP in the morning. Resume home medications. Pain control. Dr. Owen, Dr. Acevedo, Dr. Paul, and Dr. Senior to consult. We will continue to follow this patient. Tom Nolan D.O. DR: JACKSON JOB#: [id number] CC:
[2017-01-22] MEDS ORDERED: Heparin 25,000u/D5W 500ml 500 ML IV SCH (23:00)
[2017-01-22] MEDS ORDERED: Digoxin 0.5mg/2ml Inj IVP ONE (23:00)
[2017-01-22] MEDS ORDERED: Heparin 5000 units/ml inj IV ONE (23:00)
[2017-01-22] MEDS ORDERED: Zolpidem 5mg tab ORAL PRN (23:28)
[2017-01-22] MEDS ORDERED: LORazepam Inj 2mg/ml 1ml IV PRN (23:28)
[2017-01-22] MEDS ORDERED: Diltiazem 50mg/10ml Inj ONE (23:44)
[2017-01-22] MEDS ORDERED: Diltiazem 25mg/5ml IV ONE (23:45)
[2017-01-23] VITALS (23 sets, daily range): BP systolic 49–127; BP diastolic 24–69
[2017-01-23] MEDS ORDERED: Heparin 25,000u/D5W 500ml 500 ML IV SCH
[2017-01-23] MEDS ORDERED: Metoprolol 5mg/5ml Inj IVP PRN
[2017-01-23] MEDS: metroNIDAZOLE 500mg tab ORAL SCH ×4 (00:37→21:10)
[2017-01-23] MEDS: Cefepime HCl 1 GM in D5W 55 ML IV SCH ×3 (00:42→16:30)
[2017-01-23] MEDS ORDERED: Mylanta II UD 30ml ORAL PRN (00:45)
[2017-01-23] MEDS ORDERED: Morphine Sulfate 2mg/ml Inj IVP PRN ×2 (02:45→14:45)
[2017-01-23] MEDS: NovoLOG Insulin Flexpen SUBQ SCH ×4 (06:21→21:00)
[2017-01-23 07:57] LABS: MEAN CORPUSCULAR HEMOGLOBIN 33.5 PG (27.0-31.0); MEAN CORPUSCULAR HGB CONC 33.1 G/DL (32.0-36.0); MEAN CORPUSCULAR VOLUME 101 FL (80-99); MEAN PLATELET VOLUME 6.1 FL (6.5-10.1); PLATELET COUNT 334 K/UL (150-450); RED BLOOD COUNT 3.14 M/UL (4.70-6.10); RED CELL DISTRIBUTION WIDTH 13.9 % (11.6-14.8)
[2017-01-23 08:19] LABS: ANION GAP 21 (5-15); CALCIUM 7.8 mg/dL (8.6-10.2); CARBON DIOXIDE 17 mEQ/L (20-30); CHLORIDE 100 mEQ/L (98-107); CREATININE 0.8 mg/dL (0.7-1.2); GLOMERULAR FILTRATION RATE > 60 mL/min (>60); HEMOLYSIS 1; SODIUM 138 mEQ/L (135-145)
[2017-01-23] MEDS ORDERED: Vancomycin 1 GM in D5W 275 ML IVPB SCH (09:00)
[2017-01-23] MEDS: Aspirin EC 81mg tab ORAL SCH (09:01)
[2017-01-23] MEDS ORDERED: Heparin 5000 units/ml inj IV ONE ×2 (09:15→17:00)
[2017-01-23] MEDS: Heparin 25,000u/D5W 500ml 500 ML IV SCH ×3 (09:31→20:11)
[2017-01-23 10:08] LABS: BAND NEUTROPHILS % (MANUAL) 4 % (0-8); EOSINOPHILS % (MANUAL) 4 % (0-3); LYMPHOCYTES % (MANUAL) 10 % (20-45); METAMYELOCYTES % 1 % (0-0); MYELOCYTES % 1 % (0-0); NEUTROPHILS % (MANUAL) 73 % (45-75); TOTAL CELLS COUNTED 100
[2017-01-23 10:09] LABS: BASOPHILS % (MANUAL) 0 % (0-2); HYPOCHROMASIA 1+; MACROCYTES 1+; PLATELET ESTIMATE ADEQUATE; PLATELET MORPHOLOGY NORMAL
[2017-01-23] MEDS ORDERED: Tubing IV Secondary IV ONE (10:23)
[2017-01-23] MEDS ORDERED: Sterile Water Irrig 1000ml IRRIG ONE (10:23)
--- NOTE | 2017-01-23 10:23 | Pulmonolgy Critical Care Note ---
Critical Care - Asmt/Plan Problems: (1) AF (paroxysmal atrial fibrillation) (2) Severe sepsis (3) Cellulitis (4) COPD (chronic obstructive pulmonary disease) (5) Diabetes mellitus (6) Skin ulcer (7) Multiple wounds of skin Respiratory: monitor respiratory rate, adjust FIO2 Cardiac: continue to monitor HR/BP Renal: F/U I&O, keep IV fluid, check electrolytes Infectious Disease: check cultures, continue antibiotics Gastrointestinal: hold feedings Endocrine: monitor blood sugar, check HgA1C Neurologic: PRN Ativan, PRN Morphine Affect: PRN ativan Prophylaxis: Protonix Notes Reviewed: professional engineer, renal Discussed with: nurses, consultants, corrections caseworkerregional business manager - Objective Last 24 Hour Vital Signs Date Time Temp Pulse Resp B/P Pulse Ox O2 Delivery O2 Flow Rate FiO2 01/23/17 09:00 77/42 01/23/17 09:00 77/42 01/23/17 08:00 98.4 66 16 74/42 100 Room Air 01/23/17 08:00 77 01/23/17 07:00 72 12 79/57 100 Room Air 01/23/17 06:00 77 13 91/56 100 Room Air 01/23/17 05:00 76 15 70/32 100 Room Air 01/23/17 04:00 97.6 62 14 76/41 99 Room Air 01/23/17 04:00 77 01/23/17 03:00 85 01/23/17 03:00 66 14 60/42 99 Room Air 01/23/17 02:00 103 13 106/67 97 Room Air 01/23/17 01:00 120 17 120/53 96 Room Air 01/23/17 00:36 123 01/23/17 00:00 124 01/23/17 00:00 97.3 124 18 49/24 96 Room Air 01/22/17 23:00 124 17 63/40 97 Room Air 01/22/17 20:00 100.8 90 20 96/51 97 Room Air 01/22/17 20:00 92 01/22/17 18:00 98.1 01/22/17 16:00 97 01/22/17 15:20 98.1 84 20 98/51 97 Room Air 01/22/17 12:00 83 01/22/17 11:20 98.1 94 20 113/72 99 Room Air Status: awake Condition: critical, grave HEENT: atraumatic Neck: full ROM Lungs: clear Heart: HR/BP stable, HR/BP unstable Abdomen: soft, non-tender, active bowel sounds, feeding tube Micro: Microbiology Date/Time Source Procedure Growth Status 01/22/17 15:00 Wound Gram Stain - Final Resulted 01/22/17 15:00 Wound Wound Culture Pending Resulted 01/21/17 16:33 Urine,Clean Catch Urine Culture - Preliminary Resulted 01/22/17 00:00 Knee Left Gram Stain - Final Resulted 01/22/17 00:00 Knee Left Wound Culture Pending Resulted 01/21/17 16:54 Rectum VRE Culture - Final NO VANCOMYCIN RESISTANT ENTEROCOCCUS ... Complete Accucheck: 109 Critical Care - Subjective ROS Limited/Unobtainable: No ICU Day: 2 Interval Events: developed afib last night and transferred to ICU, his systolic bp was as low as 70's. He converted spontaneously to sinus, on heparin drip now. Drips: heparin I&O: Intake and Output 01/22/17 01/23/17 19:00 07:00 Intake Total 480 ml 1746.855 ml Output Total 950 ml 300 ml Balance -470 ml 1446.855 ml Intake Oral 480 ml 280 ml IV Total 1446.855 ml Other 20 ml Output Urine Total 950 ml 300 ml CXR: no change Labs: Laboratory Tests Test 01/23/17 06:45 01/23/17 08:00 White Blood Count 22.0 K/UL (4.8-10.8) H Red Blood Count 3.14 M/UL (4.70-6.10) L Hemoglobin 10.5 G/DL (14.2-18.0) L Hematocrit 31.7 % (42.0-52.0) L Mean Corpuscular Volume 101 FL (80-99) H Mean Corpuscular Hemoglobin 33.5 PG (27.0-31.0) H Mean Corpuscular Hemoglobin Concent 33.1 G/DL (32.0-36.0) Red Cell Distribution Width 13.9 % (11.6-14.8) Platelet Count 334 K/UL (150-450) Mean Platelet Volume 6.1 FL (6.5-10.1) L Neutrophils (%) (Auto) % (45.0-75.0) Lymphocytes (%) (Auto) % (20.0-45.0) Monocytes (%) (Auto) % (1.0-10.0) Eosinophils (%) (Auto) % (0.0-3.0) Basophils (%) (Auto) % (0.0-2.0) Differential Total Cells Counted 100 Neutrophils % (Manual) 73 % (45-75) Lymphocytes % (Manual) 10 % (20-45) L Monocytes % (Manual) 7 % (1-10) Eosinophils % (Manual) 4 % (0-3) H Basophils % (Manual) 0 % (0-2) Metamyelocytes % 1 % (0-0) H Myelocytes % 1 % (0-0) H Band Neutrophils 4 % (0-8) Platelet Estimate Adequate Platelet Morphology Normal Hypochromasia 1+ Macrocytosis 1+ Activated Partial Thromboplast Time 58 SEC (23-33) H Sodium Level 138 mEQ/L (135-145) Potassium Level 4.0 mEQ/L (3.4-4.9) Chloride Level 100 mEQ/L (98-107) Carbon Dioxide Level 17 mEQ/L (20-30) L Anion Gap 21 (5-15) H Blood Urea Nitrogen 38 mg/dL (7-23) H Creatinine 0.8 mg/dL (0.7-1.2) Estimat Glomerular Filtration Rate > 60 mL/min (>60) Glucose Level 121 mg/dL (74-106) H Calcium Level 7.8 mg/dL (8.6-10.2) L Vancomycin Level Trough Pending DESIRAE MERIDA Jan 23, 2017 10:23
--- NOTE | 2017-01-23 11:02 | Diagnostic Imaging Report ---
Indication: Pain Technique: 2 views of the tibia and fibula Comparison: none Findings: Positioning on the AP view is suboptimal, may reflect chronic alignment abnormality of the distal fibula. There is evidence of prior distal tibial surgery. Bones are osteoporotic. No definite acute fractures. No dislocations. No definite osteolytic lesion or osseous erosion Impression: No acute bony trauma No definite plain radiographic abnormality to suggest acute osteomyelitis. Note, however, limited sensitivity of plain radiographs for such. Consider MRI or bone scan for further evaluation if there is high clinical suspicion Evidence of prior distal tibial trauma and surgery
[2017-01-23] MEDS: Morphine Sulfate 2mg/ml Inj IVP PRN ×4 (11:30→21:12)
--- NOTE | 2017-01-23 12:00 | General Progress Note ---
Assessment/Plan Problem List: (1) Severe sepsis ICD Codes: A41.9 - Sepsis, unspecified organism; R65.20 - Severe sepsis without septic shock SNOMED: 39555127 (2) Cellulitis ICD Codes: L03.90 - Cellulitis, unspecified SNOMED: 945367026 (3) COPD (chronic obstructive pulmonary disease) ICD Codes: J44.9 - Chronic obstructive pulmonary disease, unspecified SNOMED: 95643767 (4) Diabetes mellitus ICD Codes: E11.9 - Type 2 diabetes mellitus without complications SNOMED: 58584508 (5) Skin ulcer ICD Codes: L98.499 - Non-pressure chronic ulcer of skin of other sites with unspecified severity SNOMED: 54934181 (6) Scabies ICD Codes: B86 - Scabies SNOMED: 97813005, 68015438, 354334127 (7) Wound of left leg ICD Codes: S81.802A - Unspecified open wound, left lower leg, initial encounter SNOMED: 56361148, 412353397 (8) Multiple wounds of skin ICD Codes: R23.8 - Other skin changes SNOMED: 563683540 (9) AF (paroxysmal atrial fibrillation) ICD Codes: I48.0 - Paroxysmal atrial fibrillation SNOMED: 976236322 Status: unchanged Assessment/Plan ot pt diet wound care abx cbc bmp am Subjective Constitutional: Reports: weakness Allergies: Coded Allergies: No Known Allergies (Unverified , 01/21/17) All Systems: reviewed and negative except above Subjective calm in bed in icu Objective Last 24 Hour Vital Signs Date Time Temp Pulse Resp B/P Pulse Ox O2 Delivery O2 Flow Rate FiO2 01/23/17 10:00 67 17 97/49 100 Room Air 01/23/17 09:00 77/42 01/23/17 09:00 77/42 01/23/17 08:00 98.4 66 16 74/42 100 Room Air 01/23/17 08:00 77 01/23/17 07:00 72 12 79/57 100 Room Air 01/23/17 06:00 77 13 91/56 100 Room Air 01/23/17 05:00 76 15 70/32 100 Room Air 01/23/17 04:00 97.6 62 14 76/41 99 Room Air 01/23/17 04:00 77 01/23/17 03:00 85 01/23/17 03:00 66 14 60/42 99 Room Air 01/23/17 02:00 103 13 106/67 97 Room Air 01/23/17 01:00 120 17 120/53 96 Room Air 01/23/17 00:36 123 01/23/17 00:00 124 01/23/17 00:00 97.3 124 18 49/24 96 Room Air 01/22/17 23:00 124 17 63/40 97 Room Air 01/22/17 20:00 100.8 90 20 96/51 97 Room Air 01/22/17 20:00 92 01/22/17 18:00 98.1 01/22/17 16:00 97 01/22/17 15:20 98.1 84 20 98/51 97 Room Air 01/22/17 12:00 83 Intake and Output 01/22/17 01/23/17 19:00 07:00 Intake Total 480 ml 1746.855 ml Output Total 950 ml 300 ml Balance -470 ml 1446.855 ml Intake Oral 480 ml 280 ml IV Total 1446.855 ml Other 20 ml Output Urine Total 950 ml 300 ml Laboratory Tests 01/23/17 06:45: White Blood Count 22.0H, Red Blood Count 3.14L, Hemoglobin 10.5L, Hematocrit 31.7L, Mean Corpuscular Volume 101H, Mean Corpuscular Hemoglobin 33.5H, Mean Corpuscular Hemoglobin Concent 33.1, Red Cell Distribution Width 13.9, Platelet Count 334, Mean Platelet Volume 6.1L, Neutrophils (%) (Auto) , Lymphocytes (%) ( Auto) , Monocytes (%) (Auto) , Eosinophils (%) (Auto) , Basophils (%) (Auto) , Differential Total Cells Counted 100, Neutrophils % (Manual) 73, Lymphocytes % ( Manual) 10L, Monocytes % (Manual) 7, Eosinophils % (Manual) 4H, Basophils % ( Manual) 0, Metamyelocytes % 1H, Myelocytes % 1H, Band Neutrophils 4, Platelet Estimate Adequate, Platelet Morphology Normal, Hypochromasia 1+, Macrocytosis 1+ , Activated Partial Thromboplast Time 58H, Sodium Level 138, Potassium Level 4.0 , Chloride Level 100, Carbon Dioxide Level 17L, Anion Gap 21H, Blood Urea Nitrogen 38H, Creatinine 0.8, Estimat Glomerular Filtration Rate > 60, Glucose Level 121H, Calcium Level 7.8L 01/23/17 08:00: Vancomycin Level Trough 17.2H Height (Feet): 5 Height (Inches): 2.00 Weight (Pounds): 137 General Appearance: lethargic EENT: normal ENT inspection Neck: normal alignment Cardiovascular: normal peripheral pulses, normal rate, regular rhythm Respiratory/Chest: chest wall non-tender, lungs clear, normal breath sounds Abdomen: normal bowel sounds, non tender, soft Extremities: normal inspection Edema: no edema noted Arm (L), no edema noted Arm (R), no edema noted Leg (L), no edema noted Leg (R), no edema noted Pedal (L), no edema noted Pedal (R), no edema noted Generalized Neurologic: responsive, motor weakness Skin: normal pigmentation, warm/dry SEJAL BASS Jan 23, 2017 11:59
--- NOTE | 2017-01-23 15:50 | Infectious Diseases Prog Note ---
Assessment/Plan Problems: (1) Scabies Assessment & Plan: received course of Elimite , will monitor his response , keep in contact isolation (2) Multiple wounds of skin Assessment & Plan: rule out pemphigus , recommend skin biopsy and pathology , and dermatology eval, will screen for HIV, and HSV, AND HZV (3) Wound of left leg Assessment & Plan: with staph aureus infection, rule out underlying osteomyelitis, will continue cefepime and vancomycin , X ray of the left leg didn't show any bony changes . will obtain bone scan once stable (4) Severe sepsis Assessment & Plan: due to the above, on vancomycin ,cefepime , metronidazole, and fluconazole empirically until further culture is obtained . (5) Cellulitis Assessment & Plan: with staph aureus , continue wide spectrum antibiotics (6) Diabetes mellitus Assessment & Plan: recommend tight glycemic control to keep blood glucose between 80-120. (7) UTI (urinary tract infection) Assessment & Plan: with gram negative rods, already on cefepime, await culture result (8) AF (paroxysmal atrial fibrillation) Assessment & Plan: on cardiazim and heparin drip, cardiology is following Subjective ROS Limited/Unobtainable: Yes Allergies: Coded Allergies: No Known Allergies (Unverified , 01/21/17) Subjective he was transfered to ICU for paroxysmal atrial fibrillation with hypotension, started on cardiazim drip, seems quiet and comfortable. Objective Vital Signs Last 24 Hour Vital Signs Date Time Temp Pulse Resp B/P Pulse Ox O2 Delivery O2 Flow Rate FiO2 01/23/17 13:00 82 14 89/37 100 Room Air 01/23/17 12:00 97.6 74 16 98/41 100 Room Air 01/23/17 11:00 79 16 87/51 100 Room Air 01/23/17 10:00 67 17 97/49 100 Room Air 01/23/17 09:00 77/42 01/23/17 09:00 77/42 01/23/17 08:00 98.4 66 16 74/42 100 Room Air 01/23/17 08:00 77 01/23/17 07:00 72 12 79/57 100 Room Air 01/23/17 06:00 77 13 91/56 100 Room Air 01/23/17 05:00 76 15 70/32 100 Room Air 01/23/17 04:00 97.6 62 14 76/41 99 Room Air 01/23/17 04:00 77 01/23/17 03:00 85 01/23/17 03:00 66 14 60/42 99 Room Air 01/23/17 02:00 103 13 106/67 97 Room Air 01/23/17 01:00 120 17 120/53 96 Room Air 01/23/17 00:36 123 01/23/17 00:00 124 01/23/17 00:00 97.3 124 18 49/24 96 Room Air 01/22/17 23:00 124 17 63/40 97 Room Air 01/22/17 20:00 100.8 90 20 96/51 97 Room Air 01/22/17 20:00 92 01/22/17 18:00 98.1 01/22/17 16:00 97 Height (Feet): 5 Height (Inches): 2.00 Weight (Pounds): 137 General Appearance: no acute distress, cachetic, other - multiple skin wounds in different stages HEENT: normocephalic, atraumatic, anicteric, mucous membranes moist, supple, no JVD Respiratory/Chest: chest wall non-tender, no respiratory distress, no accessory muscle use, decreased breath sounds, crackles/rales Cardiovascular: normal peripheral pulses, normal rate, regular rhythm, no gallop/murmur Abdomen: normal bowel sounds, soft, non tender, no organomegaly, non distended , no mass, no scars Extremities: no cyanosis, no clubbing Skin: no rash, no lesions, no ulcers Microbiology Date/Time Source Procedure Growth Status 01/21/17 16:36 Blood Blood Culture - Preliminary NO GROWTH AFTER 24 HOURS Resulted 01/21/17 16:26 Blood Blood Culture - Preliminary NO GROWTH AFTER 24 HOURS Resulted 01/22/17 15:00 Wound Gram Stain - Final Resulted 01/22/17 15:00 Wound Wound Culture Pending Resulted 01/21/17 16:54 Nasal Nares MRSA Culture - Final Staphylococcus Aureus - Mrsa Complete 01/21/17 16:33 Urine,Clean Catch Urine Culture - Preliminary Gram Negative Gray Resulted 01/22/17 00:00 Knee Left Gram Stain - Final Resulted 01/22/17 00:00 Wound Culture - Preliminary Staphylococcus Aureus Resulted 01/21/17 16:54 Rectum VRE Culture - Final NO VANCOMYCIN RESISTANT ENTEROCOCCUS ... Complete Laboratory Tests Test 01/23/17 06:45 01/23/17 08:00 White Blood Count 22.0 K/UL (4.8-10.8) H Red Blood Count 3.14 M/UL (4.70-6.10) L Hemoglobin 10.5 G/DL (14.2-18.0) L Hematocrit 31.7 % (42.0-52.0) L Mean Corpuscular Volume 101 FL (80-99) H Mean Corpuscular Hemoglobin 33.5 PG (27.0-31.0) H Mean Corpuscular Hemoglobin Concent 33.1 G/DL (32.0-36.0) Red Cell Distribution Width 13.9 % (11.6-14.8) Platelet Count 334 K/UL (150-450) Mean Platelet Volume 6.1 FL (6.5-10.1) L Neutrophils (%) (Auto) % (45.0-75.0) Lymphocytes (%) (Auto) % (20.0-45.0) Monocytes (%) (Auto) % (1.0-10.0) Eosinophils (%) (Auto) % (0.0-3.0) Basophils (%) (Auto) % (0.0-2.0) Differential Total Cells Counted 100 Neutrophils % (Manual) 73 % (45-75) Lymphocytes % (Manual) 10 % (20-45) L Monocytes % (Manual) 7 % (1-10) Eosinophils % (Manual) 4 % (0-3) H Basophils % (Manual) 0 % (0-2) Metamyelocytes % 1 % (0-0) H Myelocytes % 1 % (0-0) H Band Neutrophils 4 % (0-8) Platelet Estimate Adequate Platelet Morphology Normal Hypochromasia 1+ Macrocytosis 1+ Activated Partial Thromboplast Time 58 SEC (23-33) H Sodium Level 138 mEQ/L (135-145) Potassium Level 4.0 mEQ/L (3.4-4.9) Chloride Level 100 mEQ/L (98-107) Carbon Dioxide Level 17 mEQ/L (20-30) L Anion Gap 21 (5-15) H Blood Urea Nitrogen 38 mg/dL (7-23) H Creatinine 0.8 mg/dL (0.7-1.2) Estimat Glomerular Filtration Rate > 60 mL/min (>60) Glucose Level 121 mg/dL (74-106) H Calcium Level 7.8 mg/dL (8.6-10.2) L Vancomycin Level Trough 17.2 ug/mL (5.0-12.0) H Current Medications Medications (Trade) Dose Ordered Sig/Halina Route PRN Reason Start Time Stop Time Status Last Admin Dose Admin Acetaminophen (Tylenol) 650 mg Q4H PRN ORAL fever 01/23/17 02:45 02/22/17 02:44 Al Hydroxide/Mg Hydroxide (Mylanta II) 30 ml Q6H PRN ORAL dyspepsia 01/23/17 00:45 02/22/17 00:44 Amlodipine Besylate (Norvasc) 10 mg DAILY ORAL 01/23/17 09:00 02/22/17 08:59 Aspirin (Ecotrin) 81 mg DAILY ORAL 01/23/17 09:00 02/22/17 08:59 01/23/17 09:01 Atenolol (Tenormin) 50 mg DAILY ORAL 01/23/17 09:00 02/22/17 08:59 Cefepime HCl 1 gm/ Dextrose 55 ml @ 110 mls/hr Q8HR@0000,0800,1600 IV 01/23/17 00:00 01/29/17 00:00 01/23/17 08:00 Clotrimazole (Lotrimin) 1 applic EVERY 12 HOURS TOPIC 01/23/17 09:00 02/22/17 08:59 01/23/17 09:00 Dextrose (Dextrose 50%) STAT PRN IV Hypoglycemia 01/23/17 18:45 02/22/17 18:44 Diltiazem HCl 125 mg/Dextrose 125 ml @ 0 mls/hr Q24H IV 01/23/17 00:00 01/24/17 00:00 Fentanyl (Duragesic) 1 patch EVERY 72 HOURS TDERMAL 01/24/17 09:00 01/31/17 08:59 Fluconazole/ Sodium Chloride (Diflucan 200mg/ 100ml Premix) 100 ml @ 100 mls/hr Q24H IV 01/23/17 16:00 01/29/17 15:59 Gabapentin (Neurontin) 300 mg BEDTIME ORAL 01/23/17 21:00 02/22/17 20:59 Heparin Sodium/ Dextrose (Heparin) 500 ml @ 24.857 mls/ hr adjust per protocol IV 01/23/17 09:06 02/22/17 00:00 01/23/17 09:31 Insulin Aspart (NovoLOG) BEFORE MEALS AND HS SUBQ 01/23/17 06:30 02/22/17 06:29 Lorazepam (Ativan 2mg/ml 1ml) 0.5 mg Q4H PRN IV For Anxiety 01/22/17 23:28 01/29/17 23:27 Metoprolol Tartrate (Lopressor) 5 mg EVERY HOUR PRN IVP spb more than 120 01/23/17 00:00 02/22/17 00:00 Metronidazole (Flagyl) 500 mg Q8HR ORAL 01/23/17 00:00 01/30/17 00:00 01/23/17 13:56 Morphine Sulfate (Morphine Sulfate) 1 mg Q3H PRN IVP Severe Pain (Pain Scale 7-10) 01/23/17 11:00 01/30/17 10:59 01/23/17 14:00 Mupirocin (Bactroban Oint) 1 applic THREE TIMES A DAY TOPIC 01/23/17 09:00 01/28/17 08:59 UNV Ondansetron HCl (Zofran) 4 mg Q6H PRN IVP Nausea & Vomiting 01/23/17 00:45 02/22/17 00:44 Polyethylene Glycol (Miralax) 17 gm HSPRN PRN ORAL Constipation 01/23/17 18:45 02/22/17 18:44 Potassium Chloride (K-Dur) 40 meq Q8H ORAL 01/23/17 00:00 01/23/17 16:01 01/23/17 08:00 Vancomycin HCl (Vanco rx to dose) 1 ea DAILY PRN MISC Per rx protocol 01/23/17 09:00 02/22/17 08:59 Zolpidem Tartrate 5 mg 5 mg HSPRN PRN ORAL Insomnia 01/22/17 23:28 02/21/17 23:27 Vin Acevedo M.D. Jan 23, 2017 15:50
[2017-01-23] MEDS ORDERED: Miralax 17gm pkt ORAL PRN (18:45)
--- NOTE | 2017-01-23 21:14 | Cardiology Report ---
APPROVED REPORT EKG Measurement Heart [id number] Sinus tachycardia with premature atrial complexes Right bundle branch block Abnormal ECG
--- NOTE | 2017-01-23 21:35 | Cardiology Progress Note ---
Assessment/Plan Assessment/Plan The patient is seen and examined, full consult note will be dictated. Objective Last 24 Hour Vital Signs Date Time Temp Pulse Resp B/P Pulse Ox O2 Delivery O2 Flow Rate FiO2 01/23/17 21:00 98.0 95 16 112/60 100 Room Air 01/23/17 20:00 98.0 90 16 98/48 100 Room Air 01/23/17 19:00 95 17 127/65 100 Room Air 01/23/17 18:00 88 16 95/55 100 Room Air 01/23/17 17:00 88 16 89/52 100 Room Air 01/23/17 16:00 98.0 83 16 88/53 100 Room Air 01/23/17 16:00 72 01/23/17 15:00 88 16 89/52 100 Room Air 01/23/17 14:00 82 16 86/37 100 Room Air 01/23/17 13:00 82 14 89/37 100 Room Air 01/23/17 12:00 97.6 74 16 98/41 100 Room Air 01/23/17 12:00 79 01/23/17 11:00 79 16 87/51 100 Room Air 01/23/17 10:00 67 17 97/49 100 Room Air 01/23/17 09:00 77/42 01/23/17 09:00 77/42 01/23/17 08:00 98.4 66 16 74/42 100 Room Air 01/23/17 08:00 77 01/23/17 07:00 72 12 79/57 100 Room Air 01/23/17 06:00 77 13 91/56 100 Room Air 01/23/17 05:00 76 15 70/32 100 Room Air 01/23/17 04:00 97.6 62 14 76/41 99 Room Air 01/23/17 04:00 77 01/23/17 03:00 85 01/23/17 03:00 66 14 60/42 99 Room Air 01/23/17 02:00 103 13 106/67 97 Room Air 01/23/17 01:00 120 17 120/53 96 Room Air 01/23/17 00:36 123 01/23/17 00:00 124 01/23/17 00:00 97.3 124 18 49/24 96 Room Air 01/22/17 23:00 124 17 63/40 97 Room Air Intake and Output 01/22/17 01/23/17 19:00 07:00 Intake Total 480 ml 1769.225 ml Output Total 950 ml 300 ml Balance -470 ml 1469.225 ml Intake Oral 480 ml 280 ml IV Total 1469.225 ml Other 20 ml Output Urine Total 950 ml 300 ml Laboratory Tests Test 01/23/17 06:45 01/23/17 08:00 01/23/17 15:30 White Blood Count 22.0 K/UL (4.8-10.8) H Red Blood Count 3.14 M/UL (4.70-6.10) L Hemoglobin 10.5 G/DL (14.2-18.0) L Hematocrit 31.7 % (42.0-52.0) L Mean Corpuscular Volume 101 FL (80-99) H Mean Corpuscular Hemoglobin 33.5 PG (27.0-31.0) H Mean Corpuscular Hemoglobin Concent 33.1 G/DL (32.0-36.0) Red Cell Distribution Width 13.9 % (11.6-14.8) Platelet Count 334 K/UL (150-450) Mean Platelet Volume 6.1 FL (6.5-10.1) L Neutrophils (%) (Auto) % (45.0-75.0) Lymphocytes (%) (Auto) % (20.0-45.0) Monocytes (%) (Auto) % (1.0-10.0) Eosinophils (%) (Auto) % (0.0-3.0) Basophils (%) (Auto) % (0.0-2.0) Differential Total Cells Counted 100 Neutrophils % (Manual) 73 % (45-75) Lymphocytes % (Manual) 10 % (20-45) L Monocytes % (Manual) 7 % (1-10) Eosinophils % (Manual) 4 % (0-3) H Basophils % (Manual) 0 % (0-2) Metamyelocytes % 1 % (0-0) H Myelocytes % 1 % (0-0) H Band Neutrophils 4 % (0-8) Platelet Estimate Adequate Platelet Morphology Normal Hypochromasia 1+ Macrocytosis 1+ Activated Partial Thromboplast Time 58 SEC (23-33) H 64 SEC (23-33) H Sodium Level 138 mEQ/L (135-145) Potassium Level 4.0 mEQ/L (3.4-4.9) Chloride Level 100 mEQ/L (98-107) Carbon Dioxide Level 17 mEQ/L (20-30) L Anion Gap 21 (5-15) H Blood Urea Nitrogen 38 mg/dL (7-23) H Creatinine 0.8 mg/dL (0.7-1.2) Estimat Glomerular Filtration Rate > 60 mL/min (>60) Glucose Level 121 mg/dL (74-106) H Calcium Level 7.8 mg/dL (8.6-10.2) L Vancomycin Level Trough 17.2 ug/mL (5.0-12.0) H Microbiology Date/Time Source Procedure Growth Status 01/21/17 16:36 Blood Blood Culture - Preliminary NO GROWTH AFTER 24 HOURS Resulted 01/21/17 16:26 Blood Blood Culture - Preliminary NO GROWTH AFTER 24 HOURS Resulted 01/22/17 15:00 Wound Gram Stain - Final Resulted 01/22/17 15:00 Wound Wound Culture Pending Resulted 01/21/17 16:54 Nasal Nares MRSA Culture - Final Staphylococcus Aureus - Mrsa Complete 01/21/17 16:33 Urine,Clean Catch Urine Culture - Preliminary Gram Negative Gray Resulted 01/22/17 00:00 Knee Left Gram Stain - Final Resulted 01/22/17 00:00 Wound Culture - Preliminary Staphylococcus Aureus Resulted 01/21/17 16:54 Rectum VRE Culture - Final NO VANCOMYCIN RESISTANT ENTEROCOCCUS ... Complete MEKHI DE JESUS Jan 23, 2017 21:35
[2017-01-24] VITALS (18 sets, daily range): BP systolic 91–134; BP diastolic 38–79
[2017-01-24] MEDS: Cefepime HCl 1 GM in D5W 55 ML IV SCH ×2 (01:00→08:00)
[2017-01-24] MEDS: Morphine Sulfate 2mg/ml Inj IVP PRN ×6 (02:29→22:16)
[2017-01-24] MEDS: metroNIDAZOLE 500mg tab ORAL SCH ×3 (06:08→22:06)
[2017-01-24] MEDS: NovoLOG Insulin Flexpen SUBQ SCH ×4 (06:22→21:00)
[2017-01-24 06:53] LABS: MEAN CORPUSCULAR HEMOGLOBIN 33.5 PG (27.0-31.0); MEAN CORPUSCULAR HGB CONC 33.2 G/DL (32.0-36.0); MEAN CORPUSCULAR VOLUME 101 FL (80-99); PLATELET COUNT 349 K/UL (150-450); RED BLOOD COUNT 2.97 M/UL (4.70-6.10); WHITE BLOOD COUNT 21.6 K/UL (4.8-10.8)
[2017-01-24 08:04] LABS: ERYTHROCYTE SEDIMENTATION RATE 121 MM/HR (0-20)
--- NOTE | 2017-01-24 08:20 | Pulmonolgy Critical Care Note ---
Critical Care - Asmt/Plan Problems: (1) AF (paroxysmal atrial fibrillation) (2) Severe sepsis (3) Cellulitis (4) COPD (chronic obstructive pulmonary disease) (5) Diabetes mellitus (6) Skin ulcer (7) Multiple wounds of skin Respiratory: adjust FIO2 Cardiac: continue to monitor HR/BP Renal: F/U I&O, keep IV fluid, check electrolytes Infectious Disease: check cultures, continue antibiotics Gastrointestinal: continue feedings/current rate Endocrine: monitor blood sugar, check TSH, continue sliding scale insulin Hematologic: transfuse if hgb<8.5 Neurologic: PRN Ativan, keep patient comfortable Prophylaxis: Protonix Disposition: keep in ICU Notes Reviewed: 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 and 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, cardio Discussed with: nurses, consultants, family preservation caseworkerarmored transport service manager - Objective Last 24 Hour Vital Signs Date Time Temp Pulse Resp B/P Pulse Ox O2 Delivery O2 Flow Rate FiO2 01/24/17 07:00 89 19 105/59 100 Room Air 01/24/17 06:39 98.0 01/24/17 06:00 98 19 121/59 100 Room Air 01/24/17 05:00 98 19 120/59 100 Room Air 01/24/17 04:00 89 01/24/17 04:00 98.0 95 16 91/38 100 Room Air 01/24/17 03:00 98 19 114/53 100 Room Air 01/24/17 02:00 98 19 114/53 100 Room Air 01/24/17 01:00 98 19 120/69 100 Room Air 01/24/17 00:00 100 01/24/17 00:00 92 98/60 01/24/17 00:00 97.9 95 16 106/76 100 Room Air 01/23/17 23:00 98 19 113/69 100 Room Air 01/23/17 22:46 92 01/23/17 22:00 95 17 107/50 100 Room Air 01/23/17 21:00 98.0 95 16 112/60 100 Room Air 01/23/17 20:27 72 01/23/17 20:00 98.0 90 16 98/48 100 Room Air 01/23/17 19:00 95 17 127/65 100 Room Air 01/23/17 18:00 88 16 95/55 100 Room Air 01/23/17 17:00 88 16 89/52 100 Room Air 01/23/17 16:00 98.0 83 16 88/53 100 Room Air 01/23/17 16:00 72 01/23/17 15:00 88 16 89/52 100 Room Air 01/23/17 14:00 82 16 86/37 100 Room Air 01/23/17 13:00 82 14 89/37 100 Room Air 01/23/17 12:00 97.6 74 16 98/41 100 Room Air 01/23/17 12:00 79 01/23/17 11:00 79 16 87/51 100 Room Air 01/23/17 10:00 67 17 97/49 100 Room Air 01/23/17 09:00 77/42 01/23/17 09:00 77/42 Status: awake Condition: critical HEENT: atraumatic Lungs: clear Heart: HR/BP stable, regular Abdomen: non-tender Micro: Microbiology Date/Time Source Procedure Growth Status 01/21/17 16:36 Blood Blood Culture - Preliminary NO GROWTH AFTER 48 HOURS Resulted 01/21/17 16:26 Blood Blood Culture - Preliminary NO GROWTH AFTER 48 HOURS Resulted 01/22/17 15:00 Wound Gram Stain - Final Resulted 01/22/17 15:00 Wound Culture - Preliminary Staphylococcus Aureus Resulted 01/21/17 16:54 Nasal Nares MRSA Culture - Final Staphylococcus Aureus - Mrsa Complete 01/21/17 16:33 Urine,Clean Catch Urine Culture - Preliminary Gram Negative Gray Resulted 01/22/17 00:00 Knee Left Gram Stain - Final Complete 01/22/17 00:00 Wound Culture - Final Staphylococcus Aureus - Mrsa Streptococcus Pyogenes Grp A Complete 01/21/17 16:54 Rectum VRE Culture - Final NO VANCOMYCIN RESISTANT ENTEROCOCCUS ... Complete Accucheck: 138 Critical Care - Subjective ROS Limited/Unobtainable: Yes ICU Day: 3 Intubation Day: 3 Condition: critical EKG Rhythm: Sinus Rhythm I&O: Intake and Output 01/23/17 01/24/17 19:00 07:00 Intake Total 1548.64 ml 1244.342 ml Output Total 650 ml 850 ml Balance 898.64 ml 394.342 ml Intake Oral 1300 ml 700 ml IV Total 248.64 ml 544.342 ml Output Urine Total 650 ml 850 ml # Bowel Movements 2 CXR: no change Labs: Laboratory Tests Test 01/23/17 15:30 01/24/17 06:15 Activated Partial Thromboplast Time 64 SEC (23-33) H White Blood Count 21.6 K/UL (4.8-10.8) H Red Blood Count 2.97 M/UL (4.70-6.10) L Hemoglobin 9.9 G/DL (14.2-18.0) L Hematocrit 29.9 % (42.0-52.0) L Mean Corpuscular Volume 101 FL (80-99) H Mean Corpuscular Hemoglobin 33.5 PG (27.0-31.0) H Mean Corpuscular Hemoglobin Concent 33.2 G/DL (32.0-36.0) Red Cell Distribution Width 14.0 % (11.6-14.8) Platelet Count 349 K/UL (150-450) Mean Platelet Volume 6.0 FL (6.5-10.1) L Neutrophils (%) (Auto) % (45.0-75.0) Lymphocytes (%) (Auto) % (20.0-45.0) Monocytes (%) (Auto) % (1.0-10.0) Eosinophils (%) (Auto) % (0.0-3.0) Basophils (%) (Auto) % (0.0-2.0) Neutrophils % (Manual) Pending Lymphocytes % (Manual) Pending Platelet Estimate Pending Platelet Morphology Pending Erythrocyte Sedimentation Rate 121 MM/HR (0-20) H Sodium Level Pending Potassium Level Pending Chloride Level Pending Carbon Dioxide Level Pending Blood Urea Nitrogen Pending Creatinine Pending Estimat Glomerular Filtration Rate Pending Glucose Level Pending Calcium Level Pending Phosphorus Level Pending Magnesium Level Pending Total Bilirubin Pending Aspartate Amino Transf (AST/SGOT) Pending Alanine Aminotransferase (ALT/SGPT) Pending Alkaline Phosphatase Pending C-Reactive Protein, Quantitative Pending Total Protein Pending Albumin Pending Globulin Pending DESIRAE MERIDA Jan 24, 2017 08:20
[2017-01-24 08:28] LABS: ALANINE AMINOTRANSFERASE 32 U/L (3-41); ALBUMIN/GLOBULIN RATIO 0.5 (1.0-2.7); ANION GAP 17 (5-15); ASPARTATE AMINO TRANSFERASE 16 U/L (5-40); CARBON DIOXIDE 19 mEQ/L (20-30); CHLORIDE 102 mEQ/L (98-107); CREATININE 0.6 mg/dL (0.7-1.2); CRP QUANT 32.3 mg/dL (< 0.5); GLOMERULAR FILTRATION RATE > 60 mL/min (>60); HEMOLYSIS 6; PHOSPHORUS 1.6 mg/dL (2.5-4.8); POTASSIUM 5.1 mEQ/L (3.4-4.9); SODIUM 138 mEQ/L (135-145); TOTAL PROTEIN 6.3 g/dL (6.6-8.7)
[2017-01-24] MEDS: Aspirin EC 81mg tab ORAL SCH (09:24)
[2017-01-24 09:44] LABS: BAND NEUTROPHILS % (MANUAL) 0 % (0-8); BASOPHILS % (MANUAL) 0 % (0-2); EOSINOPHILS % (MANUAL) 2 % (0-3); HYPOCHROMASIA 1+; LYMPHOCYTES % (MANUAL) 8 % (20-45); MACROCYTES 1+; NEUTROPHILS % (MANUAL) 81 % (45-75); PLATELET ESTIMATE ADEQUATE; PLATELET MORPHOLOGY NORMAL; TOTAL CELLS COUNTED 100
--- NOTE | 2017-01-24 10:51 | General Progress Note ---
Assessment/Plan Problem List: (1) Severe sepsis ICD Codes: A41.9 - Sepsis, unspecified organism; R65.20 - Severe sepsis without septic shock SNOMED: 59396185 (2) Cellulitis ICD Codes: L03.90 - Cellulitis, unspecified SNOMED: 635966727 (3) COPD (chronic obstructive pulmonary disease) ICD Codes: J44.9 - Chronic obstructive pulmonary disease, unspecified SNOMED: 56752114 (4) Diabetes mellitus ICD Codes: E11.9 - Type 2 diabetes mellitus without complications SNOMED: 23280989 (5) Skin ulcer ICD Codes: L98.499 - Non-pressure chronic ulcer of skin of other sites with unspecified severity SNOMED: 05480377 (6) Scabies ICD Codes: B86 - Scabies SNOMED: 17231639, 24174071, 855370885 (7) Wound of left leg ICD Codes: S81.802A - Unspecified open wound, left lower leg, initial encounter SNOMED: 97267973, 127135581 (8) Multiple wounds of skin ICD Codes: R23.8 - Other skin changes SNOMED: 891951755 (9) AF (paroxysmal atrial fibrillation) ICD Codes: I48.0 - Paroxysmal atrial fibrillation SNOMED: 221306101 Status: stable, progressing, tolerating diet Assessment/Plan ot pt diet wound care abx cbc bmp am Subjective Constitutional: Reports: weakness Allergies: Coded Allergies: No Known Allergies (Unverified , 01/21/17) All Systems: reviewed and negative except above Subjective calm in bed in icu Objective Last 24 Hour Vital Signs Date Time Temp Pulse Resp B/P Pulse Ox O2 Delivery O2 Flow Rate FiO2 01/24/17 10:00 98.0 103 19 113/69 100 Room Air 01/24/17 09:24 111 134/53 01/24/17 09:23 111 01/24/17 09:00 98.0 109 19 134/53 100 Room Air 01/24/17 08:00 98.0 104 16 118/79 100 Room Air 01/24/17 08:00 102 01/24/17 07:00 89 19 105/59 100 Room Air 01/24/17 06:39 98.0 01/24/17 06:00 98 19 121/59 100 Room Air 01/24/17 05:00 98 19 120/59 100 Room Air 01/24/17 04:00 89 01/24/17 04:00 98.0 95 16 91/38 100 Room Air 01/24/17 03:00 98 19 114/53 100 Room Air 01/24/17 02:00 98 19 114/53 100 Room Air 01/24/17 01:00 98 19 120/69 100 Room Air 01/24/17 00:00 100 01/24/17 00:00 92 98/60 01/24/17 00:00 97.9 95 16 106/76 100 Room Air 01/23/17 23:00 98 19 113/69 100 Room Air 01/23/17 22:46 92 01/23/17 22:00 95 17 107/50 100 Room Air 01/23/17 21:00 98.0 95 16 112/60 100 Room Air 01/23/17 20:27 72 01/23/17 20:00 98.0 90 16 98/48 100 Room Air 01/23/17 19:00 95 17 127/65 100 Room Air 01/23/17 18:00 88 16 95/55 100 Room Air 01/23/17 17:00 88 16 89/52 100 Room Air 01/23/17 16:00 98.0 83 16 88/53 100 Room Air 01/23/17 16:00 72 01/23/17 15:00 88 16 89/52 100 Room Air 01/23/17 14:00 82 16 86/37 100 Room Air 01/23/17 13:00 82 14 89/37 100 Room Air 01/23/17 12:00 97.6 74 16 98/41 100 Room Air 01/23/17 12:00 79 01/23/17 11:00 79 16 87/51 100 Room Air Intake and Output 01/23/17 01/24/17 19:00 07:00 Intake Total 1548.64 ml 1244.342 ml Output Total 650 ml 850 ml Balance 898.64 ml 394.342 ml Intake Oral 1300 ml 700 ml IV Total 248.64 ml 544.342 ml Output Urine Total 650 ml 850 ml # Bowel Movements 2 Laboratory Tests 01/23/17 15:30: Activated Partial Thromboplast Time 64H 01/24/17 06:15: White Blood Count 21.6H, Red Blood Count 2.97L, Hemoglobin 9.9L, Hematocrit 29.9L, Mean Corpuscular Volume 101H, Mean Corpuscular Hemoglobin 33.5H, Mean Corpuscular Hemoglobin Concent 33.2, Red Cell Distribution Width 14.0, Platelet Count 349, Mean Platelet Volume 6.0L, Neutrophils (%) (Auto) , Lymphocytes (%) ( Auto) , Monocytes (%) (Auto) , Eosinophils (%) (Auto) , Basophils (%) (Auto) , Differential Total Cells Counted 100, Neutrophils % (Manual) 81H, Lymphocytes % (Manual) 8L, Monocytes % (Manual) 9, Eosinophils % (Manual) 2, Basophils % ( Manual) 0, Band Neutrophils 0, Platelet Estimate Adequate, Platelet Morphology Normal, Hypochromasia 1+, Macrocytosis 1+, Erythrocyte Sedimentation Rate 121H, Sodium Level 138, Potassium Level 5.1H, Chloride Level 102, Carbon Dioxide Level 19L, Anion Gap 17H, Blood Urea Nitrogen 23, Creatinine 0.6L, Estimat Glomerular Filtration Rate > 60, Glucose Level 165H, Calcium Level 8.0L, Phosphorus Level 1.6L, Magnesium Level 2.0, Total Bilirubin 0.4, Aspartate Amino Transf (AST/SGOT) 16, Alanine Aminotransferase (ALT/SGPT) 32, Alkaline Phosphatase 90, C-Reactive Protein, Quantitative 32.3H, Total Protein 6.3L, Albumin 2.1L, Globulin 4.2, Albumin/Globulin Ratio 0.5L Height (Feet): 5 Height (Inches): 2.00 Weight (Pounds): 137 General Appearance: lethargic EENT: normal ENT inspection Neck: normal alignment Cardiovascular: normal peripheral pulses, normal rate, regular rhythm Respiratory/Chest: chest wall non-tender, lungs clear, normal breath sounds Abdomen: normal bowel sounds, non tender, soft Extremities: normal inspection Edema: no edema noted Arm (L), no edema noted Arm (R), no edema noted Leg (L), no edema noted Leg (R), no edema noted Pedal (L), no edema noted Pedal (R), no edema noted Generalized Neurologic: responsive, motor weakness Skin: normal pigmentation, warm/dry SEJAL BASS Jan 24, 2017 10:51
--- NOTE | 2017-01-24 11:47 | Consultation ---
Consult Note Consult Note Pt seen and examined; records reviewed. Briefly, he was admitted for sepsis and generalized rash as well as multiple non-healing wounds, including the LE' s. He has a h/o DM and states has been walking until recently using crutches due to polio. He has pain in the legs, especially at site of wounds. Denies CP /SOB. PMH/ROS/Hosp. Course noted. Exam -- NAD; AVSS; generalized rash/scabs all over body; cor irreg.; lungs CTA; abd soft, NT, ND; extr. with open wounds L>R, mild edema, no pedal and very weak or absent femoral pulses, no foot gangrene. Labs/imaging reviewed. Assessment/Plan -- multilevel AOD in pt with h/o DM and multiple non-healing wounds, including LE's -- continue medical mgmt of sepsis, a-fib, DM, etc. -- once clinically improved and stable, will require further vascular w/u (CTA) and possible intervention accordingly. -- cont. local wound care, abx -- screening carotid duplex (ordered) -- DVT prophylaxis -- antiplatelet/statins per PMD/cardio. NASREEN RUSHING Jan 24, 2017 11:47
--- NOTE | 2017-01-24 18:00 | Infectious Diseases Prog Note ---
Assessment/Plan Problems: (1) Severe sepsis Assessment & Plan: WBC still elevated. Due to extensive secondary cellulitis of skin wounds. (2) Cellulitis Assessment & Plan: In the setting of probably a diffuse dermopathy. Allergic reaction? Agree that this could be a variant of pemphigus. Wound culture noted - Due to MRSA And GAS. Check HIV. (3) UTI (urinary tract infection) Assessment & Plan: UCx noted. Taper cefepime to ceftriaxone. (4) Scabies Assessment & Plan: Status post Elimite. Subjective Allergies: Coded Allergies: No Known Allergies (Unverified , 01/21/17) Objective Vital Signs Last 24 Hour Vital Signs Date Time Temp Pulse Resp B/P Pulse Ox O2 Delivery O2 Flow Rate FiO2 01/24/17 14:00 76 16 120/48 100 Room Air 01/24/17 13:39 97.8 01/24/17 13:00 73 16 121/59 99 Room Air 01/24/17 12:00 82 01/24/17 12:00 98.0 81 19 121/59 100 Room Air 01/24/17 11:00 98.0 103 19 130/69 100 Room Air 01/24/17 10:00 98.0 103 19 113/69 100 Room Air 01/24/17 09:57 98.0 01/24/17 09:24 111 134/53 01/24/17 09:23 111 01/24/17 09:00 98.0 109 19 134/53 100 Room Air 01/24/17 08:00 98.0 104 16 118/79 100 Room Air 01/24/17 08:00 102 01/24/17 07:00 89 19 105/59 100 Room Air 01/24/17 06:00 98 19 121/59 100 Room Air 01/24/17 05:00 98 19 120/59 100 Room Air 01/24/17 04:00 89 01/24/17 04:00 98.0 95 16 91/38 100 Room Air 01/24/17 03:00 98 19 114/53 100 Room Air 01/24/17 02:00 98 19 114/53 100 Room Air 01/24/17 01:00 98 19 120/69 100 Room Air 01/24/17 00:00 100 01/24/17 00:00 92 98/60 01/24/17 00:00 97.9 95 16 106/76 100 Room Air 01/23/17 23:00 98 19 113/69 100 Room Air 01/23/17 22:46 92 01/23/17 22:00 95 17 107/50 100 Room Air 01/23/17 21:00 98.0 95 16 112/60 100 Room Air 01/23/17 20:27 72 01/23/17 20:00 98.0 90 16 98/48 100 Room Air 01/23/17 19:00 95 17 127/65 100 Room Air 01/23/17 18:00 88 16 95/55 100 Room Air Height (Feet): 5 Height (Inches): 2.00 Weight (Pounds): 137 Microbiology Date/Time Source Procedure Growth Status 01/22/17 15:00 Wound Gram Stain - Final Resulted 01/22/17 15:00 Wound Culture - Preliminary Staphylococcus Aureus Resulted 01/22/17 00:00 Knee Left Gram Stain - Final Complete 01/22/17 00:00 Wound Culture - Final Staphylococcus Aureus - Mrsa Streptococcus Pyogenes Grp A Complete Laboratory Tests Test 01/24/17 06:15 White Blood Count 21.6 K/UL (4.8-10.8) H Red Blood Count 2.97 M/UL (4.70-6.10) L Hemoglobin 9.9 G/DL (14.2-18.0) L Hematocrit 29.9 % (42.0-52.0) L Mean Corpuscular Volume 101 FL (80-99) H Mean Corpuscular Hemoglobin 33.5 PG (27.0-31.0) H Mean Corpuscular Hemoglobin Concent 33.2 G/DL (32.0-36.0) Red Cell Distribution Width 14.0 % (11.6-14.8) Platelet Count 349 K/UL (150-450) Mean Platelet Volume 6.0 FL (6.5-10.1) L Neutrophils (%) (Auto) % (45.0-75.0) Lymphocytes (%) (Auto) % (20.0-45.0) Monocytes (%) (Auto) % (1.0-10.0) Eosinophils (%) (Auto) % (0.0-3.0) Basophils (%) (Auto) % (0.0-2.0) Differential Total Cells Counted 100 Neutrophils % (Manual) 81 % (45-75) H Lymphocytes % (Manual) 8 % (20-45) L Monocytes % (Manual) 9 % (1-10) Eosinophils % (Manual) 2 % (0-3) Basophils % (Manual) 0 % (0-2) Band Neutrophils 0 % (0-8) Platelet Estimate Adequate Platelet Morphology Normal Hypochromasia 1+ Macrocytosis 1+ Erythrocyte Sedimentation Rate 121 MM/HR (0-20) H Sodium Level 138 mEQ/L (135-145) Potassium Level 5.1 mEQ/L (3.4-4.9) H Chloride Level 102 mEQ/L (98-107) Carbon Dioxide Level 19 mEQ/L (20-30) L Anion Gap 17 (5-15) H Blood Urea Nitrogen 23 mg/dL (7-23) Creatinine 0.6 mg/dL (0.7-1.2) L Estimat Glomerular Filtration Rate > 60 mL/min (>60) Glucose Level 165 mg/dL (74-106) H Calcium Level 8.0 mg/dL (8.6-10.2) L Phosphorus Level 1.6 mg/dL (2.5-4.8) L Magnesium Level 2.0 mg/dL (1.7-2.5) Total Bilirubin 0.4 mg/dL (0.0-1.2) Aspartate Amino Transf (AST/SGOT) 16 U/L (5-40) Alanine Aminotransferase (ALT/SGPT) 32 U/L (3-41) Alkaline Phosphatase 90 U/L (40-129) C-Reactive Protein, Quantitative 32.3 mg/dL (< 0.5) H Total Protein 6.3 g/dL (6.6-8.7) L Albumin 2.1 g/dL (3.5-5.2) L Globulin 4.2 g/dL Albumin/Globulin Ratio 0.5 (1.0-2.7) L Current Medications Medications (Trade) Dose Ordered Sig/Halina Route PRN Reason Start Time Stop Time Status Last Admin Dose Admin Acetaminophen (Tylenol) 650 mg Q4H PRN ORAL fever 01/23/17 02:45 02/22/17 02:44 Al Hydroxide/Mg Hydroxide (Mylanta II) 30 ml Q6H PRN ORAL dyspepsia 01/23/17 00:45 02/22/17 00:44 Aspirin (Ecotrin) 81 mg DAILY ORAL 01/23/17 09:00 02/22/17 08:59 01/24/17 09:24 Atenolol (Tenormin) 50 mg DAILY ORAL 01/23/17 09:00 02/22/17 08:59 01/24/17 09:24 Cefepime HCl 1 gm/ Dextrose 55 ml @ 110 mls/hr Q8HR@0000,0800,1600 IV 01/23/17 00:00 01/29/17 00:00 01/24/17 08:00 Clotrimazole (Lotrimin) 1 applic EVERY 12 HOURS TOPIC 01/23/17 09:00 02/22/17 08:59 01/24/17 09:31 Dextrose (Dextrose 50%) STAT PRN IV Hypoglycemia 01/23/17 18:45 02/22/17 18:44 Digoxin 0.25 mg 0.25 mg DAILY ORAL 01/23/17 22:00 02/22/17 21:59 01/24/17 09:23 Fentanyl (Duragesic) 1 patch EVERY 72 HOURS TDERMAL 01/24/17 09:00 01/31/17 08:59 01/24/17 09:27 Fluconazole/ Sodium Chloride (Diflucan 200mg/ 100ml Premix) 100 ml @ 100 mls/hr Q24H IV 01/23/17 16:00 01/29/17 15:59 01/23/17 16:30 Gabapentin (Neurontin) 300 mg BEDTIME ORAL 01/23/17 21:00 02/22/17 20:59 01/23/17 21:11 Insulin Aspart (NovoLOG) BEFORE MEALS AND HS SUBQ 01/23/17 06:30 02/22/17 06:29 01/24/17 12:38 Lorazepam (Ativan 2mg/ml 1ml) 0.5 mg Q4H PRN IV For Anxiety 01/22/17 23:28 01/29/17 23:27 Metoprolol Tartrate (Lopressor) 5 mg EVERY HOUR PRN IVP spb more than 120 01/23/17 00:00 02/22/17 00:00 Metronidazole (Flagyl) 500 mg Q8HR ORAL 01/23/17 00:00 01/30/17 00:00 01/24/17 12:55 Morphine Sulfate (Morphine Sulfate) 1 mg Q3H PRN IVP Severe Pain (Pain Scale 7-10) 01/23/17 11:00 01/30/17 10:59 01/24/17 16:45 Mupirocin (Bactroban Oint) 1 applic THREE TIMES A DAY TOPIC 01/23/17 21:00 01/28/17 20:59 01/24/17 12:42 Ondansetron HCl (Zofran) 4 mg Q6H PRN IVP Nausea & Vomiting 01/23/17 00:45 02/22/17 00:44 Polyethylene Glycol (Miralax) 17 gm HSPRN PRN ORAL Constipation 01/23/17 18:45 02/22/17 18:44 Sodium Chloride (Sodium Chloride 1000ml bag) 1,000 ml @ 75 mls/hr [id number] IV 01/23/17 22:30 02/22/17 22:29 01/24/17 12:41 Vancomycin HCl (Vanco rx to dose) 1 ea DAILY PRN MISC Per rx protocol 01/23/17 09:00 02/22/17 08:59 Zolpidem Tartrate (Ambien) 5 mg HSPRN PRN ORAL Insomnia 01/22/17 23:28 02/21/17 23:27 01/23/17 22:46 AMILCAR NEIL Jan 24, 2017 18:00
[2017-01-24] MEDS ORDERED: Mylanta II UD 30ml ORAL PRN (18:45)
[2017-01-24] MEDS ORDERED: Miralax 17gm pkt ORAL PRN (18:45)
[2017-01-24] MEDS ORDERED: Metoprolol 5mg/5ml Inj IVP PRN (19:00)
[2017-01-24] MEDS ORDERED: LORazepam Inj 2mg/ml 1ml IV PRN (19:30)
[2017-01-24] MEDS: Zolpidem 5mg tab ORAL PRN (22:06)
[2017-01-25] VITALS: BP 133/75
[2017-01-25] MEDS ORDERED: cefTRIAXone 2 GM in D5W 110 ML IVPB SCH (02:45)
[2017-01-25 04:00] VITALS: BP 121/64
[2017-01-25] MEDS: metroNIDAZOLE 500mg tab ORAL SCH ×3 (06:01→21:33)
[2017-01-25] MEDS: NovoLOG Insulin Flexpen SUBQ SCH ×4 (06:02→21:00)
--- NOTE | 2017-01-25 07:56 | General Progress Note ---
Assessment/Plan Problem List: (1) Severe sepsis ICD Codes: A41.9 - Sepsis, unspecified organism; R65.20 - Severe sepsis without septic shock SNOMED: 49915548 (2) Cellulitis ICD Codes: L03.90 - Cellulitis, unspecified SNOMED: 101661675 (3) COPD (chronic obstructive pulmonary disease) ICD Codes: J44.9 - Chronic obstructive pulmonary disease, unspecified SNOMED: 81152937 (4) Diabetes mellitus ICD Codes: E11.9 - Type 2 diabetes mellitus without complications SNOMED: 07164812 (5) Skin ulcer ICD Codes: L98.499 - Non-pressure chronic ulcer of skin of other sites with unspecified severity SNOMED: 08994139 (6) Scabies ICD Codes: B86 - Scabies SNOMED: 85465756, 67100751, 052423305 (7) Wound of left leg ICD Codes: S81.802A - Unspecified open wound, left lower leg, initial encounter SNOMED: 43430923, 228432224 (8) Multiple wounds of skin ICD Codes: R23.8 - Other skin changes SNOMED: 353088048 (9) AF (paroxysmal atrial fibrillation) ICD Codes: I48.0 - Paroxysmal atrial fibrillation SNOMED: 282368151 Status: stable, progressing, tolerating diet Assessment/Plan ot pt diet wound care abx cbc bmp am ltach eval Subjective Constitutional: Reports: weakness Allergies: Coded Allergies: No Known Allergies (Unverified , 01/21/17) All Systems: reviewed and negative except above Subjective calm in bed sleepy Objective Last 24 Hour Vital Signs Date Time Temp Pulse Resp B/P Pulse Ox O2 Delivery O2 Flow Rate FiO2 01/25/17 04:56 94 01/25/17 04:00 97.4 92 19 121/64 97 Room Air 01/25/17 00:00 97.9 99 20 133/75 94 Room Air 01/24/17 21:00 79 01/24/17 20:00 97.7 92 20 101/53 94 Room Air 01/24/17 17:50 97.9 87 20 97/64 98 Room Air 01/24/17 17:20 79 01/24/17 16:00 85 01/24/17 16:00 97.6 76 16 130/50 100 Room Air 01/24/17 14:00 76 16 120/48 100 Room Air 01/24/17 13:39 97.8 01/24/17 13:00 73 16 121/59 99 Room Air 01/24/17 12:00 82 01/24/17 12:00 98.0 81 19 121/59 100 Room Air 01/24/17 11:00 98.0 103 19 130/69 100 Room Air 01/24/17 10:00 98.0 103 19 113/69 100 Room Air 01/24/17 09:57 98.0 01/24/17 09:24 111 134/53 01/24/17 09:23 111 01/24/17 09:00 98.0 109 19 134/53 100 Room Air 01/24/17 08:00 98.0 104 16 118/79 100 Room Air 01/24/17 08:00 102 Intake and Output 01/24/17 01/25/17 19:00 07:00 Intake Total 1035 ml Output Total 1020 ml 950 ml Balance 15 ml -950 ml Intake Oral 550 ml IV Total 485 ml Output Urine Total 1020 ml 950 ml # Bowel Movements 2 1 Height (Feet): 5 Height (Inches): 2.00 Weight (Pounds): 137 General Appearance: lethargic EENT: normal ENT inspection Neck: normal alignment Cardiovascular: normal peripheral pulses, normal rate, regular rhythm Respiratory/Chest: chest wall non-tender, lungs clear, normal breath sounds Abdomen: normal bowel sounds, non tender, soft Extremities: normal inspection Edema: no edema noted Arm (L), no edema noted Arm (R), no edema noted Leg (L), no edema noted Leg (R), no edema noted Pedal (L), no edema noted Pedal (R), no edema noted Generalized Neurologic: responsive, motor weakness Skin: normal pigmentation, warm/dry Objective punctate red scabbed lesion s in lower extremity SEJAL BASS Jan 25, 2017 07:56
[2017-01-25] MEDS: Morphine Sulfate 2mg/ml Inj IVP PRN ×5 (08:01→21:35)
[2017-01-25 08:36] LABS: BASOPHILS % (AUTO) 0.7 % (0.0-2.0); EOSINOPHILS % (AUTO) 2.2 % (0.0-3.0); LYMPHOCYTES % (AUTO) 14.4 % (20.0-45.0); MEAN CORPUSCULAR HEMOGLOBIN 32.9 PG (27.0-31.0); MEAN CORPUSCULAR HGB CONC 32.1 G/DL (32.0-36.0); MEAN CORPUSCULAR VOLUME 102 FL (80-99); MEAN PLATELET VOLUME 5.9 FL (6.5-10.1); NEUTROPHILS % (AUTO) 74.7 % (45.0-75.0); PLATELET COUNT 370 K/UL (150-450); RED BLOOD COUNT 3.02 M/UL (4.70-6.10); RED CELL DISTRIBUTION WIDTH 14.1 % (11.6-14.8)
[2017-01-25 08:40] VITALS: BP 142/74
[2017-01-25 08:49] LABS: ALANINE AMINOTRANSFERASE 28 U/L (3-41); ALBUMIN/GLOBULIN RATIO 0.5 (1.0-2.7); ANION GAP 16 (5-15); ASPARTATE AMINO TRANSFERASE 20 U/L (5-40); CALCIUM 7.4 mg/dL (8.6-10.2); CARBON DIOXIDE 21 mEQ/L (20-30); CHLORIDE 103 mEQ/L (98-107); CREATININE 0.6 mg/dL (0.7-1.2); GLOMERULAR FILTRATION RATE > 60 mL/min (>60); HEMOLYSIS 1; MAGNESIUM 1.7 mg/dL (1.7-2.5); PHOSPHORUS 1.8 mg/dL (2.5-4.8); SODIUM 140 mEQ/L (135-145); TOTAL PROTEIN 6.1 g/dL (6.6-8.7)
[2017-01-25] MEDS: Aspirin EC 81mg tab ORAL SCH (08:50)
[2017-01-25 09:44] LABS: ABG ALLEN TEST POSITIVE; ABG PCO2 32.5 mmHg (35.0-45.0)
--- NOTE | 2017-01-25 10:05 | Diagnostic Imaging Report ---
Indications: Dyspnea Technique: Portable AP chest Findings: Comparison: 01/21/17 Cardiac silhouette remains normal in size. Pulmonary vasculature remains within normal limits. Lungs and pleura remain clear. Mild calcification of the aortic arch, cephalad subluxation of both humeri, chronic appearing deformities of both scapular glenoid processes unchanged.. IMPRESSION: No evidence of acute disease, unchanged Stable chronic changes as described
[2017-01-25 12:59] VITALS: BP 126/70
[2017-01-25] MEDS: Vancomycin 750mg/D5W 275ml IVPB SCH ×2 (13:58)
[2017-01-25 15:27] VITALS: BP 125/59
--- NOTE | 2017-01-25 18:09 | Pulmonology Progress Note ---
Assessment/Plan Problems: (1) Severe sepsis (2) Cellulitis (3) Skin ulcer (4) COPD (chronic obstructive pulmonary disease) (5) Diabetes mellitus Assessment/Plan improving contine antibiotics skin lesions are better remains in sinus check wbc, slightly lower today Subjective ROS Limited/Unobtainable: No Interval Events: feeling better Allergies: Coded Allergies: No Known Allergies (Unverified , 01/21/17) Objective Last 24 Hour Vital Signs Date Time Temp Pulse Resp B/P Pulse Ox O2 Delivery O2 Flow Rate FiO2 01/25/17 15:27 98.1 77 20 125/59 97 Room Air 01/25/17 12:59 98.1 78 20 126/70 98 Room Air 01/25/17 12:00 80 01/25/17 08:51 110 01/25/17 08:51 110 142/74 01/25/17 08:40 98.1 110 20 142/74 96 Room Air 01/25/17 08:00 101 01/25/17 04:56 94 01/25/17 04:00 97.4 92 19 121/64 97 Room Air 01/25/17 00:00 97.9 99 20 133/75 94 Room Air 01/24/17 21:00 79 01/24/17 20:00 97.7 92 20 101/53 94 Room Air Intake and Output 01/24/17 01/25/17 19:00 07:00 Intake Total 1035 ml Output Total 1020 ml 950 ml Balance 15 ml -950 ml Intake Oral 550 ml IV Total 485 ml Output Urine Total 1020 ml 950 ml # Bowel Movements 2 1 Objective General Appearance: WD/WN HEENT: normocephalic, atraumatic Respiratory/Chest: chest wall non-tender, lungs clear Cardiovascular: normal peripheral pulses, normal rate, regular rhythm Abdomen: normal bowel sounds, soft, non tender, no organomegaly Extremities: no cyanosis, no clubbing Skin: extensive rash, slightly better Neurologic/Psychiatric: family services coordinator II-XII grossly normal Lymphatic: no neck adenopathy, no groin adenopathy Laboratory Tests 01/25/17 07:02: White Blood Count 14.0H, Red Blood Count 3.02L, Hemoglobin 9.9L, Hematocrit 30.9L, Mean Corpuscular Volume 102H, Mean Corpuscular Hemoglobin 32.9H, Mean Corpuscular Hemoglobin Concent 32.1, Red Cell Distribution Width 14.1, Platelet Count 370, Mean Platelet Volume 5.9L, Neutrophils (%) (Auto) 74.7, Lymphocytes ( %) (Auto) 14.4L, Monocytes (%) (Auto) 8.0, Eosinophils (%) (Auto) 2.2, Basophils (%) (Auto) 0.7, Sodium Level 140, Potassium Level 4.0, Chloride Level 103, Carbon Dioxide Level 21, Anion Gap 16H, Blood Urea Nitrogen 15, Creatinine 0.6L, Estimat Glomerular Filtration Rate > 60, Glucose Level 191H, Calcium Level 7.4L, Phosphorus Level 1.8L, Magnesium Level 1.7, Total Bilirubin 0.2, Aspartate Amino Transf (AST/SGOT) 20, Alanine Aminotransferase (ALT/SGPT) 28, Alkaline Phosphatase 100, Total Protein 6.1L, Albumin 2.1L, Globulin 4.0, Albumin/Globulin Ratio 0.5L 01/25/17 09:37: Arterial Blood pH 7.441, Arterial Blood Partial Pressure CO2 32.5L, Arterial Blood Partial Pressure O2 71.1L, Arterial Blood HCO3 21.6L, Arterial Blood Oxygen Saturation 93.3, Arterial Blood Base Excess -2.0, Adolfo Test Positive Current Medications Medications (Trade) Dose Ordered Sig/Halina Route PRN Reason Start Time Stop Time Status Last Admin Dose Admin Acetaminophen (Tylenol) 650 mg Q4H PRN ORAL fever 01/24/17 18:45 02/23/17 18:44 Al Hydroxide/Mg Hydroxide (Mylanta II) 30 ml Q6H PRN ORAL dyspepsia 01/24/17 18:45 02/23/17 18:44 Aspirin (Ecotrin) 81 mg DAILY ORAL 01/25/17 09:00 02/24/17 08:59 01/25/17 08:50 Atenolol (Tenormin) 50 mg DAILY ORAL 01/25/17 09:00 02/24/17 08:59 01/25/17 08:51 Ceftriaxone Sodium 2 gm/ Dextrose 110 ml @ 220 mls/hr Q24H IVPB 01/26/17 06:00 02/02/17 05:59 Clotrimazole (Lotrimin) 1 applic EVERY 12 HOURS TOPIC 01/24/17 21:00 02/23/17 20:59 01/25/17 10:46 Dextrose (Dextrose 50%) STAT PRN IV Hypoglycemia 01/24/17 18:45 02/23/17 18:44 Digoxin (Lanoxin) 0.25 mg DAILY ORAL 01/25/17 09:00 02/24/17 08:59 01/25/17 08:51 Fentanyl (Duragesic) 1 patch EVERY 72 HOURS TDERMAL 01/27/17 09:00 02/03/17 08:59 Fluconazole/ Sodium Chloride 100 ml @ 100 mls/hr Q24H IV 01/25/17 16:00 02/01/17 15:59 01/25/17 16:34 Gabapentin (Neurontin) 300 mg BEDTIME ORAL 01/24/17 21:00 02/23/17 20:59 01/24/17 22:05 Insulin Aspart (NovoLOG) BEFORE MEALS AND HS SUBQ 01/24/17 21:00 02/23/17 20:59 01/25/17 16:51 Lorazepam (Ativan 2mg/ml 1ml) 0.5 mg Q4H PRN IV For Anxiety 01/24/17 19:30 01/31/17 19:29 Metoprolol Tartrate (Lopressor) 5 mg EVERY HOUR PRN IVP spb more than 120 01/24/17 19:00 02/23/17 18:59 Metronidazole (Flagyl) 500 mg Q8HR ORAL 01/24/17 22:00 01/31/17 21:59 01/25/17 13:58 Morphine Sulfate (Morphine Sulfate) 1 mg Q3H PRN IVP Severe Pain (Pain Scale 7-10) 01/24/17 20:00 01/31/17 19:59 01/25/17 15:23 Mupirocin (Bactroban Oint) 1 applic THREE TIMES A DAY TOPIC 01/25/17 09:00 01/30/17 08:59 01/25/17 13:58 Ondansetron HCl (Zofran) 4 mg Q6H PRN IVP Nausea & Vomiting 01/24/17 18:45 02/23/17 18:44 Polyethylene Glycol (Miralax) 17 gm HSPRN PRN ORAL Constipation 01/24/17 18:45 02/23/17 18:44 Sodium Chloride (Sodium Chloride 1000ml bag) 1,000 ml @ 75 mls/hr [id number] IV 01/24/17 20:00 02/23/17 19:59 01/25/17 08:50 Vancomycin HCl (Vanco rx to dose) 1 ea DAILY PRN MISC Per rx protocol 01/25/17 09:00 02/24/17 08:59 Vancomycin HCl/ Dextrose (Vancomycin/D5W) 275 ml @ 183.708 mls/hr Q12HR@0200,1400 IVPB 01/25/17 14:00 01/30/17 13:59 01/25/17 13:58 Zolpidem Tartrate 5 mg 5 mg HSPRN PRN ORAL Insomnia 01/24/17 23:30 02/23/17 23:29 01/24/17 22:06 DESIRAE MERIDA Jan 25, 2017 18:09
[2017-01-25 20:00] VITALS: BP 135/69
[2017-01-25] MEDS: Zolpidem 5mg tab ORAL PRN (21:33)
--- NOTE | 2017-01-25 23:06 | Infectious Diseases Prog Note ---
Assessment/Plan Problems: (1) Severe sepsis Assessment & Plan: WBC still elevated. Due to extensive secondary cellulitis of skin wounds. (2) Cellulitis Assessment & Plan: In the setting of probably a diffuse dermopathy. Allergic reaction? Agree that this could be a variant of pemphigus. Wound culture noted - Due to MRSA And GAS. Check HIV. (3) UTI (urinary tract infection) Assessment & Plan: UCx noted. Taper cefepime to ceftriaxone. (4) Scabies Assessment & Plan: Status post Elimite. Subjective Allergies: Coded Allergies: No Known Allergies (Unverified , 01/21/17) Objective Vital Signs Last 24 Hour Vital Signs Date Time Temp Pulse Resp B/P Pulse Ox O2 Delivery O2 Flow Rate FiO2 01/25/17 20:00 98.6 85 20 135/69 95 01/25/17 16:00 74 01/25/17 15:27 98.1 77 20 125/59 97 Room Air 01/25/17 12:59 98.1 78 20 126/70 98 Room Air 01/25/17 12:00 80 01/25/17 08:51 110 01/25/17 08:51 110 142/74 01/25/17 08:40 98.1 110 20 142/74 96 Room Air 01/25/17 08:00 101 01/25/17 04:56 94 01/25/17 04:00 97.4 92 19 121/64 97 Room Air 01/25/17 00:00 97.9 99 20 133/75 94 Room Air Height (Feet): 5 Height (Inches): 2.00 Weight (Pounds): 137 Laboratory Tests Test 01/25/17 07:02 01/25/17 09:37 White Blood Count 14.0 K/UL (4.8-10.8) H Red Blood Count 3.02 M/UL (4.70-6.10) L Hemoglobin 9.9 G/DL (14.2-18.0) L Hematocrit 30.9 % (42.0-52.0) L Mean Corpuscular Volume 102 FL (80-99) H Mean Corpuscular Hemoglobin 32.9 PG (27.0-31.0) H Mean Corpuscular Hemoglobin Concent 32.1 G/DL (32.0-36.0) Red Cell Distribution Width 14.1 % (11.6-14.8) Platelet Count 370 K/UL (150-450) Mean Platelet Volume 5.9 FL (6.5-10.1) L Neutrophils (%) (Auto) 74.7 % (45.0-75.0) Lymphocytes (%) (Auto) 14.4 % (20.0-45.0) L Monocytes (%) (Auto) 8.0 % (1.0-10.0) Eosinophils (%) (Auto) 2.2 % (0.0-3.0) Basophils (%) (Auto) 0.7 % (0.0-2.0) Sodium Level 140 mEQ/L (135-145) Potassium Level 4.0 mEQ/L (3.4-4.9) Chloride Level 103 mEQ/L (98-107) Carbon Dioxide Level 21 mEQ/L (20-30) Anion Gap 16 (5-15) H Blood Urea Nitrogen 15 mg/dL (7-23) Creatinine 0.6 mg/dL (0.7-1.2) L Estimat Glomerular Filtration Rate > 60 mL/min (>60) Glucose Level 191 mg/dL (74-106) H Calcium Level 7.4 mg/dL (8.6-10.2) L Phosphorus Level 1.8 mg/dL (2.5-4.8) L Magnesium Level 1.7 mg/dL (1.7-2.5) Total Bilirubin 0.2 mg/dL (0.0-1.2) Aspartate Amino Transf (AST/SGOT) 20 U/L (5-40) Alanine Aminotransferase (ALT/SGPT) 28 U/L (3-41) Alkaline Phosphatase 100 U/L (40-129) Total Protein 6.1 g/dL (6.6-8.7) L Albumin 2.1 g/dL (3.5-5.2) L Globulin 4.0 g/dL Albumin/Globulin Ratio 0.5 (1.0-2.7) L Arterial Blood pH 7.441 (7.350-7.450) Arterial Blood Partial Pressure CO2 32.5 mmHg (35.0-45.0) L Arterial Blood Partial Pressure O2 71.1 mmHg (75.0-100.0) L Arterial Blood HCO3 21.6 mmol/L (22.0-26.0) L Arterial Blood Oxygen Saturation 93.3 % (92.0-98.0) Arterial Blood Base Excess -2.0 Adolfo Test Positive Current Medications Medications (Trade) Dose Ordered Sig/Halina Route PRN Reason Start Time Stop Time Status Last Admin Dose Admin Acetaminophen (Tylenol) 650 mg Q4H PRN ORAL fever 01/24/17 18:45 02/23/17 18:44 Al Hydroxide/Mg Hydroxide (Mylanta II) 30 ml Q6H PRN ORAL dyspepsia 01/24/17 18:45 02/23/17 18:44 Aspirin (Ecotrin) 81 mg DAILY ORAL 01/25/17 09:00 02/24/17 08:59 01/25/17 08:50 Atenolol (Tenormin) 50 mg DAILY ORAL 01/25/17 09:00 02/24/17 08:59 01/25/17 08:51 Ceftriaxone Sodium 2 gm/ Dextrose 110 ml @ 220 mls/hr Q24H IVPB 01/26/17 06:00 02/02/17 05:59 Clotrimazole (Lotrimin) 1 applic EVERY 12 HOURS TOPIC 01/24/17 21:00 02/23/17 20:59 01/25/17 10:46 Dextrose (Dextrose 50%) STAT PRN IV Hypoglycemia 01/24/17 18:45 02/23/17 18:44 Digoxin (Lanoxin) 0.25 mg DAILY ORAL 01/25/17 09:00 02/24/17 08:59 01/25/17 08:51 Fentanyl (Duragesic) 1 patch EVERY 72 HOURS TDERMAL 01/27/17 09:00 02/03/17 08:59 Fluconazole/ Sodium Chloride 100 ml @ 100 mls/hr Q24H IV 01/25/17 16:00 02/01/17 15:59 01/25/17 16:34 Gabapentin (Neurontin) 300 mg BEDTIME ORAL 01/24/17 21:00 02/23/17 20:59 01/25/17 21:33 Insulin Aspart (NovoLOG) BEFORE MEALS AND HS SUBQ 01/24/17 21:00 02/23/17 20:59 01/25/17 16:51 Lorazepam (Ativan 2mg/ml 1ml) 0.5 mg Q4H PRN IV For Anxiety 01/24/17 19:30 01/31/17 19:29 Metoprolol Tartrate (Lopressor) 5 mg EVERY HOUR PRN IVP spb more than 120 01/24/17 19:00 02/23/17 18:59 Metronidazole (Flagyl) 500 mg Q8HR ORAL 01/24/17 22:00 01/31/17 21:59 01/25/17 21:33 Morphine Sulfate (Morphine Sulfate) 1 mg Q3H PRN IVP Severe Pain (Pain Scale 7-10) 01/24/17 20:00 01/31/17 19:59 01/25/17 21:35 Mupirocin (Bactroban Oint) 1 applic THREE TIMES A DAY TOPIC 01/25/17 09:00 01/30/17 08:59 01/25/17 18:18 Ondansetron HCl (Zofran) 4 mg Q6H PRN IVP Nausea & Vomiting 01/24/17 18:45 02/23/17 18:44 Polyethylene Glycol (Miralax) 17 gm HSPRN PRN ORAL Constipation 01/24/17 18:45 02/23/17 18:44 Sodium Chloride (Sodium Chloride 1000ml bag) 1,000 ml @ 75 mls/hr [id number] IV 01/24/17 20:00 02/23/17 19:59 01/25/17 23:01 Vancomycin HCl (Vanco rx to dose) 1 ea DAILY PRN MISC Per rx protocol 01/25/17 09:00 02/24/17 08:59 Vancomycin HCl/ Dextrose (Vancomycin/D5W) 275 ml @ 183.708 mls/hr Q12HR@0200,1400 IVPB 01/25/17 14:00 01/30/17 13:59 01/25/17 13:58 Zolpidem Tartrate 5 mg 5 mg HSPRN PRN ORAL Insomnia 01/24/17 23:30 02/23/17 23:29 01/25/17 21:33 AMILCAR NEIL Jan 25, 2017 23:06
[2017-01-26 00:07] VITALS: BP 121/67
[2017-01-26] MEDS: Vancomycin 750mg/D5W 275ml IVPB SCH ×4 (01:38→15:00)
[2017-01-26 04:02] VITALS: BP 123/73
[2017-01-26] MEDS: metroNIDAZOLE 500mg tab ORAL SCH ×2 (05:01→14:03)
[2017-01-26] MEDS: NovoLOG Insulin Flexpen SUBQ SCH ×3 (05:17→16:17)
[2017-01-26 05:48] LABS: BASOPHILS % (AUTO) 0.6 % (0.0-2.0); EOSINOPHILS % (AUTO) 3.9 % (0.0-3.0); LYMPHOCYTES % (AUTO) 14.8 % (20.0-45.0); MEAN CORPUSCULAR HEMOGLOBIN 32.8 PG (27.0-31.0); MEAN CORPUSCULAR HGB CONC 31.9 G/DL (32.0-36.0); MEAN CORPUSCULAR VOLUME 103 FL (80-99); MEAN PLATELET VOLUME 5.7 FL (6.5-10.1); MONOCYTES % (AUTO) 7.6 % (1.0-10.0); NEUTROPHILS % (AUTO) 73.1 % (45.0-75.0); PLATELET COUNT 395 K/UL (150-450); RED CELL DISTRIBUTION WIDTH 13.8 % (11.6-14.8); WHITE BLOOD COUNT 16.5 K/UL (4.8-10.8)
[2017-01-26] MEDS ORDERED: cefTRIAXone 2 GM in D5W 110 ML IVPB SCH (06:00)
[2017-01-26 06:35] LABS: ANION GAP 16 (5-15); CALCIUM 7.6 mg/dL (8.6-10.2); CARBON DIOXIDE 24 mEQ/L (20-30); CHLORIDE 100 mEQ/L (98-107); CREATININE 0.5 mg/dL (0.7-1.2); GLOMERULAR FILTRATION RATE > 60 mL/min (>60); HEMOLYSIS 2; POTASSIUM 3.7 mEQ/L (3.4-4.9); SODIUM 140 mEQ/L (135-145)
[2017-01-26 08:00] VITALS: BP 139/77
[2017-01-26] MEDS: Aspirin EC 81mg tab ORAL SCH (08:30)
[2017-01-26] MEDS: Morphine Sulfate 2mg/ml Inj IVP PRN ×3 (08:31→17:01)
[2017-01-26] MEDS ORDERED: Tubing IV Secondary IV ONE (08:46)
--- NOTE | 2017-01-26 10:11 | Infectious Diseases Prog Note ---
Assessment/Plan Problems: (1) Severe sepsis Assessment & Plan: WBC still elevated. Due to extensive secondary cellulitis of skin wounds. (2) Cellulitis Assessment & Plan: In the setting of probably a diffuse dermopathy. Allergic reaction? Agree that this could be a variant of pemphigus. Wound culture noted - Due to MRSA And GAS. Check HIV. (3) UTI (urinary tract infection) Assessment & Plan: UCx noted. Taper cefepime to ceftriaxone. (4) Scabies Assessment & Plan: Status post Elimite. Subjective Allergies: Coded Allergies: No Known Allergies (Unverified , 01/21/17) Objective Vital Signs Last 24 Hour Vital Signs Date Time Temp Pulse Resp B/P Pulse Ox O2 Delivery O2 Flow Rate FiO2 01/26/17 09:15 98.4 01/26/17 08:30 78 01/26/17 08:30 78 139/77 01/26/17 08:00 98.2 78 18 139/77 98 Room Air 01/26/17 08:00 85 01/26/17 04:02 98.4 79 19 123/73 95 Room Air 01/26/17 04:00 93 01/26/17 00:07 98.5 91 21 121/67 97 Room Air 01/26/17 00:00 88 01/25/17 20:00 89 01/25/17 20:00 98.6 85 20 135/69 95 01/25/17 16:00 74 01/25/17 15:27 98.1 77 20 125/59 97 Room Air 01/25/17 12:59 98.1 78 20 126/70 98 Room Air 01/25/17 12:00 80 Height (Feet): 5 Height (Inches): 2.00 Weight (Pounds): 137 Laboratory Tests Test 01/26/17 04:30 White Blood Count 16.5 K/UL (4.8-10.8) H Red Blood Count 3.00 M/UL (4.70-6.10) L Hemoglobin 9.8 G/DL (14.2-18.0) L Hematocrit 30.8 % (42.0-52.0) L Mean Corpuscular Volume 103 FL (80-99) H Mean Corpuscular Hemoglobin 32.8 PG (27.0-31.0) H Mean Corpuscular Hemoglobin Concent 31.9 G/DL (32.0-36.0) L Red Cell Distribution Width 13.8 % (11.6-14.8) Platelet Count 395 K/UL (150-450) Mean Platelet Volume 5.7 FL (6.5-10.1) L Neutrophils (%) (Auto) 73.1 % (45.0-75.0) Lymphocytes (%) (Auto) 14.8 % (20.0-45.0) L Monocytes (%) (Auto) 7.6 % (1.0-10.0) Eosinophils (%) (Auto) 3.9 % (0.0-3.0) H Basophils (%) (Auto) 0.6 % (0.0-2.0) Erythrocyte Sedimentation Rate 118 MM/HR (0-20) H Sodium Level 140 mEQ/L (135-145) Potassium Level 3.7 mEQ/L (3.4-4.9) Chloride Level 100 mEQ/L (98-107) Carbon Dioxide Level 24 mEQ/L (20-30) Anion Gap 16 (5-15) H Blood Urea Nitrogen 12 mg/dL (7-23) Creatinine 0.5 mg/dL (0.7-1.2) L Estimat Glomerular Filtration Rate > 60 mL/min (>60) Glucose Level 150 mg/dL (74-106) H Calcium Level 7.6 mg/dL (8.6-10.2) L C-Reactive Protein, Quantitative 13.7 mg/dL (< 0.5) H Vitamin D 25-Hydroxy Pending 25-Hydroxy Vitamin D2 Pending 25-Hydroxy Vitamin D3 Pending Rheumatoid Factor Screen Pending Anti-Nuclear Antibody Screen Pending c-ANCA Titer Pending p-ANCA Titer Pending Current Medications Medications (Trade) Dose Ordered Sig/Halina Route PRN Reason Start Time Stop Time Status Last Admin Dose Admin Acetaminophen (Tylenol) 650 mg Q4H PRN ORAL fever 01/24/17 18:45 02/23/17 18:44 Al Hydroxide/Mg Hydroxide (Mylanta II) 30 ml Q6H PRN ORAL dyspepsia 01/24/17 18:45 02/23/17 18:44 Aspirin (Ecotrin) 81 mg DAILY ORAL 01/25/17 09:00 02/24/17 08:59 01/26/17 08:30 Atenolol (Tenormin) 50 mg DAILY ORAL 01/25/17 09:00 02/24/17 08:59 01/26/17 08:30 Ceftriaxone Sodium 2 gm/ Dextrose 110 ml @ 220 mls/hr Q24H IVPB 01/26/17 06:00 02/02/17 05:59 01/26/17 05:03 Clotrimazole (Lotrimin) 1 applic EVERY 12 HOURS TOPIC 01/24/17 21:00 02/23/17 20:59 01/26/17 08:31 Dextrose (Dextrose 50%) STAT PRN IV Hypoglycemia 01/24/17 18:45 02/23/17 18:44 Digoxin (Lanoxin) 0.25 mg DAILY ORAL 01/25/17 09:00 02/24/17 08:59 01/26/17 08:30 Fentanyl (Duragesic) 1 patch EVERY 72 HOURS TDERMAL 01/27/17 09:00 02/03/17 08:59 Fluconazole/ Sodium Chloride 100 ml @ 100 mls/hr Q24H IV 01/25/17 16:00 02/01/17 15:59 01/25/17 16:34 Gabapentin (Neurontin) 300 mg BEDTIME ORAL 01/24/17 21:00 02/23/17 20:59 01/25/17 21:33 Insulin Aspart (NovoLOG) BEFORE MEALS AND HS SUBQ 01/24/17 21:00 02/23/17 20:59 01/25/17 16:51 Lorazepam (Ativan 2mg/ml 1ml) 0.5 mg Q4H PRN IV For Anxiety 01/24/17 19:30 01/31/17 19:29 Metoprolol Tartrate (Lopressor) 5 mg EVERY HOUR PRN IVP spb more than 120 01/24/17 19:00 02/23/17 18:59 Metronidazole (Flagyl) 500 mg Q8HR ORAL 01/24/17 22:00 01/31/17 21:59 01/26/17 05:01 Morphine Sulfate (Morphine Sulfate) 1 mg Q3H PRN IVP Severe Pain (Pain Scale 7-10) 01/24/17 20:00 01/31/17 19:59 01/26/17 08:31 Mupirocin (Bactroban Oint) 1 applic THREE TIMES A DAY TOPIC 01/25/17 09:00 01/30/17 08:59 01/26/17 08:31 Ondansetron HCl (Zofran) 4 mg Q6H PRN IVP Nausea & Vomiting 01/24/17 18:45 02/23/17 18:44 Polyethylene Glycol (Miralax) 17 gm HSPRN PRN ORAL Constipation 01/24/17 18:45 02/23/17 18:44 Sodium Chloride (Sodium Chloride 1000ml bag) 1,000 ml @ 75 mls/hr [id number] IV 01/24/17 20:00 02/23/17 19:59 01/25/17 23:01 Vancomycin HCl (Vanco rx to dose) 1 ea DAILY PRN MISC Per rx protocol 01/25/17 09:00 02/24/17 08:59 Vancomycin HCl/ Dextrose (Vancomycin/D5W) 275 ml @ 183.708 mls/hr Q12HR@0200,1400 IVPB 01/25/17 14:00 01/30/17 13:59 01/26/17 01:38 Zolpidem Tartrate 5 mg 5 mg HSPRN PRN ORAL Insomnia 01/24/17 23:30 02/23/17 23:29 01/25/17 21:33 AMILCAR NEIL Jan 26, 2017 10:11
[2017-01-26 12:00] VITALS: BP 140/72
--- NOTE | 2017-01-26 12:23 | General Progress Note ---
Assessment/Plan Problem List: (1) Severe sepsis ICD Codes: A41.9 - Sepsis, unspecified organism; R65.20 - Severe sepsis without septic shock SNOMED: 42363925 (2) Cellulitis ICD Codes: L03.90 - Cellulitis, unspecified SNOMED: 585689889 (3) COPD (chronic obstructive pulmonary disease) ICD Codes: J44.9 - Chronic obstructive pulmonary disease, unspecified SNOMED: 71541689 (4) Diabetes mellitus ICD Codes: E11.9 - Type 2 diabetes mellitus without complications SNOMED: 38956502 (5) Skin ulcer ICD Codes: L98.499 - Non-pressure chronic ulcer of skin of other sites with unspecified severity SNOMED: 02026210 (6) Scabies ICD Codes: B86 - Scabies SNOMED: 95425239, 29624273, 625174492 (7) Wound of left leg ICD Codes: S81.802A - Unspecified open wound, left lower leg, initial encounter SNOMED: 69645847, 576228669 (8) Multiple wounds of skin ICD Codes: R23.8 - Other skin changes SNOMED: 119202756 (9) AF (paroxysmal atrial fibrillation) ICD Codes: I48.0 - Paroxysmal atrial fibrillation SNOMED: 897344247 Status: stable, progressing, tolerating diet Assessment/Plan ot pt diet wound care abx cbc bmp am ltach transfer Subjective Constitutional: Reports: weakness Allergies: Coded Allergies: No Known Allergies (Unverified , 01/21/17) All Systems: reviewed and negative except above Subjective calm in bed sleepy Objective Last 24 Hour Vital Signs Date Time Temp Pulse Resp B/P Pulse Ox O2 Delivery O2 Flow Rate FiO2 01/26/17 09:15 98.4 01/26/17 08:30 78 01/26/17 08:30 78 139/77 01/26/17 08:00 98.2 78 18 139/77 98 Room Air 01/26/17 08:00 85 01/26/17 04:02 98.4 79 19 123/73 95 Room Air 01/26/17 04:00 93 01/26/17 00:07 98.5 91 21 121/67 97 Room Air 01/26/17 00:00 88 01/25/17 20:00 89 01/25/17 20:00 98.6 85 20 135/69 95 01/25/17 16:00 74 01/25/17 15:27 98.1 77 20 125/59 97 Room Air 01/25/17 12:59 98.1 78 20 126/70 98 Room Air Intake and Output 01/25/17 01/26/17 19:00 07:00 Intake Total 360 ml 185 ml Output Total 450 ml 600 ml Balance -90 ml -415 ml Intake Oral 360 ml IV Total 185 ml Output Urine Total 450 ml 600 ml Laboratory Tests 01/26/17 04:30: White Blood Count 16.5H, Red Blood Count 3.00L, Hemoglobin 9.8L, Hematocrit 30.8L, Mean Corpuscular Volume 103H, Mean Corpuscular Hemoglobin 32.8H, Mean Corpuscular Hemoglobin Concent 31.9L, Red Cell Distribution Width 13.8, Platelet Count 395, Mean Platelet Volume 5.7L, Neutrophils (%) (Auto) 73.1, Lymphocytes (%) (Auto) 14.8L, Monocytes (%) (Auto) 7.6, Eosinophils (%) (Auto) 3.9H, Basophils (%) (Auto) 0.6, Erythrocyte Sedimentation Rate 118H, Sodium Level 140, Potassium Level 3.7, Chloride Level 100, Carbon Dioxide Level 24, Anion Gap 16H, Blood Urea Nitrogen 12, Creatinine 0.5L, Estimat Glomerular Filtration Rate > 60, Glucose Level 150H, Calcium Level 7.6L, C-Reactive Protein , Quantitative 13.7H, Vitamin D 25-Hydroxy [Pending], 25-Hydroxy Vitamin D2 [ Pending], 25-Hydroxy Vitamin D3 [Pending], Rheumatoid Factor Screen [Pending], Anti-Nuclear Antibody Screen [Pending], c-ANCA Titer [Pending], p-ANCA Titer [ Pending] Height (Feet): 5 Height (Inches): 2.00 Weight (Pounds): 137 General Appearance: lethargic EENT: normal ENT inspection Neck: normal alignment Cardiovascular: normal peripheral pulses, normal rate, regular rhythm Respiratory/Chest: chest wall non-tender, lungs clear, normal breath sounds Abdomen: normal bowel sounds, non tender, soft Edema: no edema noted Arm (L), no edema noted Arm (R), no edema noted Leg (L), no edema noted Leg (R), no edema noted Pedal (L), no edema noted Pedal (R), no edema noted Generalized Neurologic: motor weakness Skin: normal pigmentation, warm/dry Objective punctate red scabbed lesion s in lower extremity SEJAL BASS Jan 26, 2017 12:23
[2017-01-26] MEDS ORDERED: Heparin 2000 units/Ns 1000ml INJ ONE (12:30)
[2017-01-26] MEDS ORDERED: Lidocaine 1% Plain 30 ml INJ ONE (12:30)
[2017-01-26] MEDS ORDERED: Sodium Bicarbonate 8.4% 50ml Inj IV ONE (12:30)
--- NOTE | 2017-01-26 12:34 | Pulmonology Progress Note ---
Assessment/Plan Problems: (1) Severe sepsis (2) Cellulitis (3) Skin ulcer (4) COPD (chronic obstructive pulmonary disease) (5) Diabetes mellitus Assessment/Plan improving contine antibiotics skin lesions are better remains in sinus check wbc, f/u cardio recommendations Subjective ROS Limited/Unobtainable: No Constitutional: Reports: no symptoms HEENT: Repors: no symptoms Respiratory: Reports: no symptoms Cardiovascular: Reports: no symptoms Gastrointestinal/Abdominal: Reports: no symptoms Genitourinary: Reports: no symptoms Neurologic: Reports: no symptoms Psychiatric: Reports: no symptoms Skin: Reports: other - extensive lesions not changed Allergies: Coded Allergies: No Known Allergies (Unverified , 01/21/17) Objective Last 24 Hour Vital Signs Date Time Temp Pulse Resp B/P Pulse Ox O2 Delivery O2 Flow Rate FiO2 01/26/17 09:15 98.4 01/26/17 08:30 78 01/26/17 08:30 78 139/77 01/26/17 08:00 98.2 78 18 139/77 98 Room Air 01/26/17 08:00 85 01/26/17 04:02 98.4 79 19 123/73 95 Room Air 01/26/17 04:00 93 01/26/17 00:07 98.5 91 21 121/67 97 Room Air 01/26/17 00:00 88 01/25/17 20:00 89 01/25/17 20:00 98.6 85 20 135/69 95 01/25/17 16:00 74 01/25/17 15:27 98.1 77 20 125/59 97 Room Air 01/25/17 12:59 98.1 78 20 126/70 98 Room Air Intake and Output 01/25/17 01/26/17 19:00 07:00 Intake Total 360 ml 185 ml Output Total 450 ml 600 ml Balance -90 ml -415 ml Intake Oral 360 ml IV Total 185 ml Output Urine Total 450 ml 600 ml Objective General Appearance: WD/WN HEENT: normocephalic, atraumatic Respiratory/Chest: chest wall non-tender, lungs clear Cardiovascular: normal peripheral pulses, normal rate, regular rhythm Abdomen: normal bowel sounds, soft, non tender, no organomegaly Extremities: no cyanosis, no clubbing Skin: extensive rash, slightly better 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 Lymphatic: no neck adenopathy, no groin adenopathy Laboratory Tests 01/26/17 04:30: White Blood Count 16.5H, Red Blood Count 3.00L, Hemoglobin 9.8L, Hematocrit 30.8L, Mean Corpuscular Volume 103H, Mean Corpuscular Hemoglobin 32.8H, Mean Corpuscular Hemoglobin Concent 31.9L, Red Cell Distribution Width 13.8, Platelet Count 395, Mean Platelet Volume 5.7L, Neutrophils (%) (Auto) 73.1, Lymphocytes (%) (Auto) 14.8L, Monocytes (%) (Auto) 7.6, Eosinophils (%) (Auto) 3.9H, Basophils (%) (Auto) 0.6, Erythrocyte Sedimentation Rate 118H, Sodium Level 140, Potassium Level 3.7, Chloride Level 100, Carbon Dioxide Level 24, Anion Gap 16H, Blood Urea Nitrogen 12, Creatinine 0.5L, Estimat Glomerular Filtration Rate > 60, Glucose Level 150H, Calcium Level 7.6L, C-Reactive Protein , Quantitative 13.7H, Vitamin D 25-Hydroxy [Pending], 25-Hydroxy Vitamin D2 [ Pending], 25-Hydroxy Vitamin D3 [Pending], Rheumatoid Factor Screen [Pending], Anti-Nuclear Antibody Screen [Pending], c-ANCA Titer [Pending], p-ANCA Titer [ Pending] Current Medications Medications (Trade) Dose Ordered Sig/Halina Route PRN Reason Start Time Stop Time Status Last Admin Dose Admin Acetaminophen (Tylenol) 650 mg Q4H PRN ORAL fever 01/24/17 18:45 02/23/17 18:44 Al Hydroxide/Mg Hydroxide (Mylanta II) 30 ml Q6H PRN ORAL dyspepsia 01/24/17 18:45 02/23/17 18:44 Aspirin (Ecotrin) 81 mg DAILY ORAL 01/25/17 09:00 02/24/17 08:59 01/26/17 08:30 Atenolol (Tenormin) 50 mg DAILY ORAL 01/25/17 09:00 02/24/17 08:59 01/26/17 08:30 Ceftriaxone Sodium 2 gm/ Dextrose 110 ml @ 220 mls/hr Q24H IVPB 01/26/17 06:00 02/02/17 05:59 01/26/17 05:03 Clotrimazole (Lotrimin) 1 applic EVERY 12 HOURS TOPIC 01/24/17 21:00 02/23/17 20:59 01/26/17 08:31 Dextrose (Dextrose 50%) STAT PRN IV Hypoglycemia 01/24/17 18:45 02/23/17 18:44 Digoxin (Lanoxin) 0.25 mg DAILY ORAL 01/25/17 09:00 02/24/17 08:59 01/26/17 08:30 Fentanyl (Duragesic) 1 patch EVERY 72 HOURS TDERMAL 01/27/17 09:00 02/03/17 08:59 Fluconazole/ Sodium Chloride 100 ml @ 100 mls/hr Q24H IV 01/25/17 16:00 02/01/17 15:59 01/25/17 16:34 Gabapentin (Neurontin) 300 mg BEDTIME ORAL 01/24/17 21:00 02/23/17 20:59 01/25/17 21:33 Heparin Sodium/ Sodium Chloride (Heparin 2000 units/Ns 1000ml premix) 2,000 unit ONCE ONCE INJ 01/26/17 12:30 01/26/17 12:31 UNV Insulin Aspart (NovoLOG) BEFORE MEALS AND HS SUBQ 01/24/17 21:00 02/23/17 20:59 01/26/17 11:11 Lidocaine HCl (Xylocaine 1% 30ml) 30 ml ONCE ONCE INJ 01/26/17 12:30 01/26/17 12:31 UNV Lorazepam (Ativan 2mg/ml 1ml) 0.5 mg Q4H PRN IV For Anxiety 01/24/17 19:30 01/31/17 19:29 Metoprolol Tartrate (Lopressor) 5 mg EVERY HOUR PRN IVP spb more than 120 01/24/17 19:00 02/23/17 18:59 Metronidazole (Flagyl) 500 mg Q8HR ORAL 01/24/17 22:00 01/31/17 21:59 01/26/17 05:01 Morphine Sulfate (Morphine Sulfate) 1 mg Q3H PRN IVP Severe Pain (Pain Scale 7-10) 01/24/17 20:00 01/31/17 19:59 01/26/17 08:31 Mupirocin (Bactroban Oint) 1 applic THREE TIMES A DAY TOPIC 01/25/17 09:00 01/30/17 08:59 01/26/17 08:31 Ondansetron HCl (Zofran) 4 mg Q6H PRN IVP Nausea & Vomiting 01/24/17 18:45 02/23/17 18:44 Polyethylene Glycol (Miralax) 17 gm HSPRN PRN ORAL Constipation 01/24/17 18:45 02/23/17 18:44 Sodium Bicarbonate (Sodium Bicarbonate) 50 ml ONCE ONCE IV 01/26/17 12:30 01/26/17 12:31 UNV Sodium Chloride (Sodium Chloride 1000ml bag) 1,000 ml @ 75 mls/hr [id number] IV 01/24/17 20:00 02/23/17 19:59 01/25/17 23:01 Vancomycin HCl (Vanco rx to dose) 1 ea DAILY PRN MISC Per rx protocol 01/25/17 09:00 02/24/17 08:59 Vancomycin HCl/ Dextrose (Vancomycin/D5W) 275 ml @ 183.708 mls/hr Q12HR@0200,1400 IVPB 01/25/17 14:00 01/30/17 13:59 01/26/17 01:38 Zolpidem Tartrate 5 mg 5 mg HSPRN PRN ORAL Insomnia 01/24/17 23:30 02/23/17 23:29 01/25/17 21:33 DESIRAE MERIDA Jan 26, 2017 12:34
--- NOTE | 2017-01-26 14:08 | Consultation ---
NOTE: POOR AUDIO This rheumatological consultation ordered by Dr. Paul on this 64-year-old patient because of suspicion of autoimmune phenomena. HISTORY OF PRESENT ILLNESS: The patient was a resident of an extended care facility where he has been in relatively stable condition for nearly 1 year. He developed a small rash on his upper extremity, which was small, non-disturbing and nonpruritic. The rash continued to progress very slowly and did not interrupt the patient activities of daily living. More than a week ago, the rash became substantially diffuse mainly lower extremity consists of multiple crusty necrotic wound by normal skin. It affects mainly upper extremity and lower extremity, but particularly did not affect any mucosal surface or genital area. He was admitted to [facility] and being considered to have staphylococcus dermatitis and being treated by intravenous antibiotics. PAST MEDICAL HISTORY: Surgery, patient had polio at the age of 4 and underwent multiple surgeries for transposition of the lower extremity in both feet. His last surgery was in May 2003 with no evidence of surgical . Medically, he was noted to have high blood pressure earlier and lower extremity neuropathy for which he has been treated by gabapentin and Duragesic patch. 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 ALLERGIES: No known drug allergies. MEDICATIONS: The patient is now on ceftriaxone, metronidazole, vancomycin, and fluconazole. He is on alendronate 70 mg weekly for osteoporosis; however, he does not recall of any need of emergency retests. He is on atenolol, digoxin and aspirin for premature cardiovascular disorder. He is on zolpidem 5 mg at bedtime with the clotrimazole cream and gabapentin 300 mg only and bedtime only. He is on metoprolol tartrate 5 mg, he received for atrial fibrillation. FAMILY HISTORY: His father at the age 80 from a stroke disorder and connective tissue disease, lupus, rheumatoid arthritis, . He has one brother in good health. He has one sister in good health. He has no children. SOCIAL HISTORY: He is single. He was born in [place]. He has been in [place] since 1983. 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 Habits, the patient smoked one pack a day for more than 40 years. He denies drinking and denied use of illicit drugs. REVIEW OF SYSTEMS: Cardiovascular: The patient denied any chest pain, shortness of breath, palpitations, or dizziness. Pulmonary: The patient denied any cough, wheezing, or expectoration. Gastrointestinal: His appetite actually had increased. He has no dysphagia or dyspepsia. No bowel movement disorder. There was no weight loss that took place in the last year. Genitourinary: The patient denied any dysuria, frequency, incontinence, or nocturia. He is 0 to 3. Joint: The patient denied any swelling, stiffness, cold extremities, photosensitivity, dry eyes, or alopecia. His left knee is warm and swollen and tender. The patient fell on his knee less than 2 weeks ago and this has been swollen since that time. Central Nervous System: Ambien 5 mg daily. He has no numbness, tingling, seizure disorder, and has no headache. PHYSICAL EXAMINATION: VITAL SIGNS: Blood pressure is 142/74, his pulse is 78, respirations were 20, and temperature 98.1. HEENT: Eyes were normal. Pupils were round, equal, and reactive to light. Sclerae was white. Conjunctivae was pink. Extraocular movements were normal. Temporal arteries were palpable bilaterally. There was some bilateral temporal wasting. Visual krishna to confrontation were normal. Neglect sign was negative. There was no evidence of conjunctivitis or iridocyclitis. ENT: Mucous membranes were not dehydrated. Auditory canals were clear and tympanic membranes could not be visualized. Nasal cavity was not congested. Nasal septum was intact. Soft palate was free of ulcerations. Pharynx was clear from exudate or tonsillar hypertrophy. Uvula annel to phonation. Tongue was moist, midline, and normally papillated. There was no sign in the nasal cavity or oral cavity. NECK: Supple. There was no goiter. No mass. No lymphadenopathy. There was no jugular venous distention no bruits. Carotid upstroke was 2+. LUNGS: Clear. HEART: PMI was in fifth left intercostal space in midclavicular line. There was normal S1 and normal S2. There was no murmur. No arrhythmia. No S3. No S4. No pericardial rub. ABDOMEN: Soft and nontender without organomegaly. There were no masses palpable. Normal bowel sounds without bruits. There was no guarding. No rebound tenderness. No ascites. No hernia. No CVA tenderness. Liver span was 8 cm, mostly nontender. EXTREMITIES: No cyanosis, no clubbing. There was 1+ edema in both lower extremity. The skin was noted with multiple small necrotic lesion by normal skin. The le ft knee was more swollen tender with minimal fluctuation sign. on both sides was slightly wasted. Popliteal fossa was . Passive range of motion of joints in upper extremity, shoulder and lower extremities. PIP and DIP were normal. There was no loss of hyperextension. There was no swelling, tenderness, crepitus, or fluctuation sign. LABORATORY DATA: Hemoglobin is 9.9, hematocrit was 30.9 with MCV of 102, WBC of 14, and platelets 370. His BUN and creatinine is 15 and 0.6 respectively. Sodium 140, potassium 4, chloride 103, and CO2 is 21. His phosphorus 1.7 and magnesium 1.8. His calcium is 7.4. Albumin is 2.1. Total protein is 6.1. SGOT, SGPT and alkaline phosphatase are within normal. His chest x-ray showed no active disease. Imaging of the fibula and tibial revealed that there was trauma and no definite osteolytic lesions . IMPRESSION: The patient has diffuse facial dermatitis that lasts now for more than one year. 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 The possibility of chronic cutaneous autoimmune vasculitis is possible. However, the lesion is more typical of palpable rash of autoimmune vasculitis. In any event, there was other autoimmune inflammatory marker. Galilea Senior M.D. DR: DEANDRE JOB#: [id number] CC:
--- NOTE | 2017-01-26 14:27 | Diagnostic Imaging Report ---
APPROVED REPORT CPT Code: 23123 Vascular Symptoms Comments: Screening. Doppler Spectral Velocity Analysis RightLeft arteries. The Doppler spectral flow analysis indicates the degree of stenosis is minimal (5-10%) in the common carotid artery, mild (30%) in the internal carotid artery, and moderate (50%) in the external carotid artery. VERTEBRAL- The vertebral artery was not well visualized. arteries. The Doppler spectral flow analysis indicates the degree of stenosis is minimal (5-10%) in the common carotid artery, mild (20-30%) in the internal carotid artery, and severe (75%) in the external carotid artery. VERTEBRAL- The vertebral artery is patent, without evidence of stenosis or steal.
--- NOTE | 2017-01-26 14:48 | General Progress Note ---
Progress Note Progress Note All noted. Vascular status quo. Carotid duplex reviewed. WBC elevated. -- cont. abx per ID -- once medically optimized and cleared will obtain CTA -- poss. revascularization if indicated once w/u completed NASREEN RUSHING Jan 26, 2017 14:48
[2017-01-26 16:00] VITALS: BP 130/86
[2017-01-26 20:22] VITALS: BP 131/63
[2017-01-27 05:10] LABS: RHEUMATOID FACTOR SCREEN <10.0 IU/mL (0.0-13.9)
[2017-01-27 20:13] LABS: ANTI-NUCLEAR ANTIBODY SCREEN Negative (Negative)
== END 2017-01-26 20:39 | DRG 872 ==
LOC: EDBD 15:37 → EMR 16:26 → 2E 16:35 → EDBEDREQ 16:49 → 2E 18:43 → EDBEDREQ 20:15 → 2E 01-22 14:51 → ICU 01-22 22:48 → 2E 01-24 16:56
DX: A41.9 Sepsis, unspecified organism (principal); I48.0 Paroxysmal atrial fibrillation; B86 Scabies; I10 Essential (primary) hypertension; L03.115 Cellulitis of right lower limb; E11.9 Type 2 diabetes mellitus without complications; M86.9 Osteomyelitis, unspecified; L03.116 Cellulitis of left lower limb; J44.9 Chronic obstructive pulmonary disease, unspecified; L98.499 Non-pressure chronic ulcer of skin of other sites with unspecified severity; R65.20 Severe sepsis without septic shock; Z79.4 Long term (current) use of insulin
CPT/HCPCS: 36415; 36600; 71010; 80048; 80053; 80061; 80202; 81003; 82306; 82550; 82553; 82803; 82962; 83036; 83605; 83735; 84100; 84443; 84484; 85007; 85025; 85610; 85651; 85730; 86021; 86039; 86140; 86431; 86703; 87040; 87070; 87081; 87086; 87181; 87205; 93005; 93306; 93880; 93925; 93970; J1815; J8499